=== PATIENT | female | born 1930 | race Caucasian/White ===

== ENCOUNTER 2017-02-01 17:09 | Inpatient (IN) | payer SELFPAY ==
[~2017-02-01] VITALS: Ht 144.8 cm; Wt 40.4 kg
[2017-02-01 17:44] VITALS: BP 147/112
[2017-02-01 18:34] LABS: BASOPHILS # (AUTO) 0.1 K/uL (0.00-0.22); BASOPHILS % (AUTO) 1.4 % (0.0-2.0); EOSINOPHILS # (AUTO) 0.2 K/uL (0-0.4); EOSINOPHILS % (AUTO) 2.5 % (0.0-4.0); LYMPHOCYTES % (AUTO) 35.6 % (20.5-51.1); MEAN CORPUSCULAR HEMOGLOBIN 28 pg (27-31); MEAN CORPUSCULAR HGB CONC 33 g/dL (33-37); MEAN CORPUSCULAR VOLUME 87 fL (80-94); MONOCYTES % (AUTO) 12.1 % (1.7-9.3); NEUTROPHILS # (AUTO) 4.2 K/uL (1.8-7.7); NEUTROPHILS % (AUTO) 48.4 % (42.2-75.2); PLATELET COUNT (AUTO) 171 K/uL (140-450); RED BLOOD CELL COUNT(AUTO) 4.59 MIL/uL (4.20-5.40); RED CELL DISTRIBUTION WIDTH 14.3 % (11.6-13.7); WHITE BLOOD COUNT (AUTO) 8.5 K/uL (4.8-10.8)
[2017-02-01 18:43] LABS: CALCIUM 9.3 mg/dL (8.5-10.1); CARBON DIOXIDE 29.3 mmol/L (21-32); CHLORIDE 106 mmol/L (98-107); CREATININE 0.8 mg/dL (0.6-1.3); GLUCOSE 111 mg/dL (74-106); POTASSIUM 3.3 mmol/L (3.5-5.1); SODIUM SERUM 143 mmol/L (136-145); UREA NITROGEN, BLOOD 13 mg/dL (7-18)
[2017-02-01 18:49] LABS: ALANINE AMINOTRANSFERASE 26 U/L (12-78); ALBUMIN 3.5 g/dL (3.4-5.0); ALKALINE PHOSPHATASE 79 U/L (46-116); ASPARTATE AMINOTRANSFERASE 22 U/L (15-37); LIPASE 171 U/L (73-393); TOTAL BILIRUBIN 0.7 mg/dL (0.0-1.0); TOTAL PROTEIN, SERUM 7.5 g/dL (6.4-8.2)
--- NOTE | 2017-02-01 19:41 | NUR ---
TO ER BED 4
--- NOTE | 2017-02-01 19:48 | NUR ---
PT IS 86/F BIB DAUGHTER AND GRANDSON TO ED WITH C/O EPIGASTRIC PAIN X2 MONTHS. PT FAMILY STATES NO MED HX.DENIESD; SKIN IS PINK/WARM/DRY; AAOX4 WITH EVEN AND STEADY GAIT; LUNGS CLEAR BL; HR EVEN AND REGULAR; PT DENIES ANY FEVER, CP, SOB, OR COUGH AT THIS TIME; PATIENT STATES PAIN OF 8/10 AT THIS TIME; VSS; PATIENT POSITIONED FOR COMFORT; HOB ELEVATED; BEDRAILS UP X2; BED DOWN. ER MD MADE AWARE OF PT STATUS.
[2017-02-01] MEDS ORDERED: MORPHINE SULFATE 2 MG/ML SYR IVP ONE (20:00)
[2017-02-01] MEDS ORDERED: ONDANSETRON 4 MG/2 ML VIAL IVP ONE (20:00)
[2017-02-01] MEDS ORDERED: NACL 0.9% 1,000 ML IV ONE (20:00)
[2017-02-01] MEDS ORDERED: LORazepam 2 MG/ML VIAL IVP PRN (20:35)
[2017-02-01] MEDS ORDERED: ONDANSETRON 4 MG/2 ML VIAL IVP PRN (20:35)
--- NOTE | 2017-02-01 20:37 | NUR ---
US DONE AT BEDSIDE.
[2017-02-01 20:55] LABS: INR 1.1 (0.8-1.2); PARTIAL THROMBOPLASTIN TIME 28.6 secs (22-35.6); PROTHROMBIN TIME 10.7 secs (10.8-13.4)
--- NOTE | 2017-02-01 21:00 | NUR ---
Patient will be admitted to care of DR ALEGRIA. Admited to TELE. Will go to room 108A. Belongings list completed. Report to JOSE TANG.
[2017-02-01 21:03] LABS: CREATINE KINASE MB 2.1 ng/mL (0-3.6)
[2017-02-01 21:10] VITALS: BP 138/72
--- NOTE | 2017-02-01 21:25 | NUR ---
ADMITTED A 86F FROM ER. CAME BY JEROMY ACCOMPANIED BY FAMILY MEMBERS. ON TELE MONITOR. CAME DUE TO SEVERE EPIGASTRIC ABDOMINAL PAIN TODAY. AZERI SPEAKING. BUT GRANDSON MOHAMUD PRESENT TO TRANSLATE TO PT AND DAUGHTER . ABLE TO GET MEDICAL INFORMATION TO THE PT. AWAKE, ALERT AND ORIENTED X4. AMBULATORY WITH SOME ASSISTANCE. HAS HL ON THE LT AC @22. CLEAR AND PATENT. SKIN ASSESSMENT DONE,INTACT WITH JOSE ASCENCIO CHARGE . PLAN OF CARE DISCUSSED WITH FAMILY AND CLIENT . ORIENTED TO HOSPITAL ROUTINES, VISITING HOURS AND SAFETY MEASURES. VERBALIZED UNDERSTANDING. CALL LIGHT WITHIN EASY REACH. WILL CONTINUE TO MONITOR.
--- NOTE | 2017-02-01 21:50 | NUR ---
ABLE TO TALKED TO DR. LÓPEZ, MANAGER JAVA FOR DR. ALEGRIA REGARDING HIDA SCAN ORDER. SHE SAID IT CAN BE DONE TOMORROW. ALSO MADE AWARE ABOUT K LEVEL 3.3 SHE SAID SHE WILL TAKE CARE .
[2017-02-01] MEDS ORDERED: KCL 20 MEQ/WATER INJ PREMIX 100 ML IV ONE (22:25)
[2017-02-01] MEDS: NACL 0.9% 1,000 ML IV SCH (22:30)
--- NOTE | 2017-02-01 22:30 | NUR ---
PT KEPT NPO ORDERED FOR POSSIBLE SURGERY PATTI.
--- NOTE | 2017-02-01 22:40 | NUR ---
SURGERY EXPLAINED TO FAMILY . JACK GRANDSON EXPLAINED TO PT AND VERBALIZED UNDERSTANDING. CONSENT WAS SIGNED BY PT.
[2017-02-02 00:03] VITALS: BP 121/62
--- NOTE | 2017-02-02 02:00 | NUR ---
SLEEPING WELL AT THUS TIME. NO S/S OF ANY DISCOMFORT NOTED.
[2017-02-02] MEDS: MORPHINE SULFATE 2 MG/ML SYR IVP PRN ×3 (02:35→21:43)
[2017-02-02 02:58] LABS: CREATINE KINASE MB 1.3 ng/mL (0-3.6)
[2017-02-02 04:21] VITALS: BP 100/55
--- NOTE | 2017-02-02 04:35 | NUR ---
ASSISTED UP TO THE BATHROOM. VOIDED. NO C/O PAIN AT THIS TIME.
[2017-02-02 06:08] LABS: BASOPHILS # (AUTO) 0.1 K/uL (0.00-0.22); BASOPHILS % (AUTO) 1.7 % (0.0-2.0); EOSINOPHILS # (AUTO) 0.2 K/uL (0-0.4); EOSINOPHILS % (AUTO) 2.6 % (0.0-4.0); HEMOGLOBIN 12.1 g/dL (12.0-16.0); LYMPHOCYTES # (AUTO) 1.7 K/uL (2.5-16.5); LYMPHOCYTES % (AUTO) 27.8 % (20.5-51.1); MEAN CORPUSCULAR HEMOGLOBIN 29 pg (27-31); MEAN CORPUSCULAR HGB CONC 33 g/dL (33-37); MEAN CORPUSCULAR VOLUME 88 fL (80-94); MONOCYTES # (AUTO) 0.7 K/uL (0.8-1.0); MONOCYTES % (AUTO) 10.6 % (1.7-9.3); NEUTROPHILS # (AUTO) 3.5 K/uL (1.8-7.7); NEUTROPHILS % (AUTO) 57.3 % (42.2-75.2); PLATELET COUNT (AUTO) 149 K/uL (140-450); RED BLOOD CELL COUNT(AUTO) 4.22 MIL/uL (4.20-5.40); RED CELL DISTRIBUTION WIDTH 14.2 % (11.6-13.7); WHITE BLOOD COUNT (AUTO) 6.2 K/uL (4.8-10.8)
--- NOTE | 2017-02-02 07:25 | NUR ---
RECEIVED PT IN BED, AWAKE, ALERT, ORIENTEDX4. NO SOB NOTED. DENIES ANY PAIN OR DISCOMFORT AT THIS TIME. SKIN INTACT. POSITIVE BOWEL SOUNDS NOTED ON FOUR QUADRANTS. DENIES ANY DISCOMFORT WITH BOWEL AND BLADDER ELIMINATION. SAFETY PRECAUTION IN PLACE. CALL LIGHT WITHIN REACH.
--- NOTE | 2017-02-02 07:28 | NUR ---
CALLED CT SCAN AND TALKED TO JESSICA FULTON SCAN ORDER FOR THIS AM.
--- NOTE | 2017-02-02 07:30 | NUR ---
ENDORSED PT IN STABLE CONDITION TO AM NURSE.
--- NOTE | 2017-02-02 07:54 | NUR ---
PATIENT HAS BEEN SCREENED AND CATEGORIZED MODERATE NUTRITION RISK. PATIENT WILL BE SEEN WITHIN 3-5 DAYS OF ADMISSION. 02/04/17-02/06/[address]
[2017-02-02 08:00] VITALS: BP_SYST 100; BP_SYST 142; BP_DIAS 56; BP_DIAS 75
[2017-02-02] MEDS: NACL 0.9% 1,000 ML IV SCH ×2 (09:03→21:07)
[2017-02-02] MEDS ORDERED: LIDOCAINE VISCOUS 2% 20 ML UDC PO SCH (09:30)
[2017-02-02] MEDS ORDERED: ALUMINUM HYD/MAG/SIMETHICONE 30 ML UDC PO SCH (09:30)
[2017-02-02] MEDS ORDERED: DICYCLOMINE HCL LIQUID 10 MG/5 ML UDC PO SCH (09:30)
--- NOTE | 2017-02-02 09:45 | NUR ---
CALLED NUCLEAR MEDICINE SPOKE WITH SHAWN, SHE SAID TO HOLD THE GI COCKTAIL UNTIL HIDASCAN IS DONE. SINCE PT IS NPO BEFORE PROCEDURE.
[2017-02-02 10:41] LABS: CREATINE KINASE MB 1.1 ng/mL (0-3.6)
--- NOTE | 2017-02-02 10:42 | NUR ---
SHAWN FROM NUCLEAR MEDICINE CAME TO TENTMAKER PT FOR HIDASCAN. FAMILY AT BEDSIDE AND AWARE OF PROCEDURE. PT ON STABLE CONDITION.
[2017-02-02 12:00] VITALS: BP 142/75
--- NOTE | 2017-02-02 12:15 | NUR ---
PT CAME BACK FROM NUCLEAR MEDICINE WITH SHAWN. ADMINISTERED MORPHINE 2MG FOR THE NEXT HIDASCAN SCHEDULE. PT DENIES PAIN OR DISCOMFORT. NO SOB. ASSISTED TO THE BATHROOM VOIDED YELLO CLEAR URINE. TRANSFERRED BACK WITH SHAWN (NUCLEAR MEDICINE STAFF) FOR THE HIDASCAN ON STABLE CONDITION.
--- NOTE | 2017-02-02 12:45 | NUR ---
PT CAMKE BACK FROM NUCLEAR MEDICINE WITH SHAWN ON STABLE CONDITION.
--- NOTE | 2017-02-02 13:45 | NUR ---
GI COCKTAIL HELD DUE TO PT DENIES ANY PAIN. DR. PEÑA AWARE.
[2017-02-02] MEDS ORDERED: PANT40EC PO (14:24)
[2017-02-02] MEDS ORDERED: SUCR1TAB35 PO (14:24)
[2017-02-02] MEDS ORDERED: HYDR-4446 PO (14:30)
[2017-02-02] MEDS ORDERED: POTASSIUM CHLORIDE 10 MEQ TABER PO SCH (15:00)
[2017-02-02] MEDS: LEVOFLOXACIN 250 MG/D5 PREMIX 50 ML IV SCH (15:18)
[2017-02-02 16:00] VITALS: BP 132/68
--- NOTE | 2017-02-02 17:54 | NUR ---
DR. WREN (SURGEON) CAME TO SEE PT. EXPLAINED PT CONDITION. EXPLAINED TO PT AND FAMILY FOR LAPARASCOPIC POSSIBLE OPEN CHOLESTECTOMY. DAUGHTER MARTIR SIGNED CONSENT. VERBALIZED UNDERSTANDING.
--- NOTE | 2017-02-02 19:22 | NUR ---
ENDORSED PT TO UPCOMING SHIFT ON STABLE CONDITION.
--- NOTE | 2017-02-02 19:23 | NUR ---
RECEIVED REPORT FROM DAY RN FOR CONTINUITY OF CARE. PATIENT IS A&OX4, DISCUSSED PLAN OF CARE WITH PATIENT AND FAMILY MEMBERS AT BEDSIDE, VERBALIZED UNDERSTANDING. SHIFT ASSESSMENT DONE, VS TAKEN, STABLE. NO S/S OF RESPIRATORY DISTRESS NOTED ON ROOM AIR. PATIENT DENIES PAIN AT THIS TIME. IV TO LT AC 22 GAUGE PATENT AND INFUSING FLUIDS WELL. SAFETY/ FALL PRECAUTIONS ENFORCED. PT INFORMED OF NPO AT MIDNIGHT, VERBALIZED UNDERSTANDING. CALL LIGHT PLACED WITHIN REACH. WILL CONTINUE TO MONITOR.
[2017-02-02 20:00] VITALS: BP 143/71
[2017-02-02] MEDS ORDERED: ALBUTEROL SULFATE/IPRATROPIU 3 ML SOL IH PRN (20:50)
[2017-02-02] MEDS: metroNIDAZOLE 500 MG/NS PREMIX 100 ML IV SCH (21:07)
--- NOTE | 2017-02-02 21:43 | NUR ---
PT C/O PAIN IN STOMACH, MEDICATED PER MD ORDER. DUE ANTIBIOTICS ADMINISTERED, NO REACTION NOTED. CALL LIGHT WITHIN REACH.
[2017-02-02] MEDS ORDERED: PNEUMOCOCCAL VACCINE 23 MCG/0.5 ML VIAL IMVAC PRN (23:15)
--- NOTE | 2017-02-02 23:52 | NUR ---
PT AMBULATED TO RESTROOM WITH ASSISTANCE, VOIDED. RETURNED TO BED, VS TAKEN, STABLE. PT C/O IV SITE SORE, NEW IV LINE INSERTED TO LT FA 22 GAUGE. CALL LIGHT PLACED WITHIN REACH.
[2017-02-03] VITALS: BP 125/67
--- NOTE | 2017-02-03 01:49 | NUR ---
PATIENT IS SLEEPING. NO S/S OF DISTRESS OR DISCOMFORT NOTED. WILL CONTINUE TO MONITOR.
[2017-02-03] MEDS: MORPHINE SULFATE 2 MG/ML SYR IVP PRN ×2 (03:39→13:16)
--- NOTE | 2017-02-03 03:39 | NUR ---
VS TAKEN, STABLE. PT C/O ABDOMINAL PAIN, MEDICATED PER MD ORDER. CALL LIGHT WITHIN REACH.
[2017-02-03 04:00] VITALS: BP 144/61
[2017-02-03] MEDS: metroNIDAZOLE 500 MG/NS PREMIX 100 ML IV SCH ×3 (04:35→20:12)
--- NOTE | 2017-02-03 05:53 | NUR ---
ASSISTED PATIENT TO USE RESTROOM, VOIDED. PATIENT NOW BACK IN BED AND MADE COMFORTABLE. CALL LIGHT WITHIN REACH.
[2017-02-03 06:04] LABS: BASOPHILS # (AUTO) 0.1 K/uL (0.00-0.22); BASOPHILS % (AUTO) 1.8 % (0.0-2.0); EOSINOPHILS # (AUTO) 0.1 K/uL (0-0.4); EOSINOPHILS % (AUTO) 1.7 % (0.0-4.0); HEMATOCRIT 37.1 % (36-48); HEMOGLOBIN 12.1 g/dL (12.0-16.0); LYMPHOCYTES % (AUTO) 29.9 % (20.5-51.1); MEAN CORPUSCULAR HEMOGLOBIN 29 pg (27-31); MEAN CORPUSCULAR HGB CONC 33 g/dL (33-37); MEAN CORPUSCULAR VOLUME 87 fL (80-94); MONOCYTES # (AUTO) 0.7 K/uL (0.8-1.0); MONOCYTES % (AUTO) 10.9 % (1.7-9.3); NEUTROPHILS # (AUTO) 3.7 K/uL (1.8-7.7); NEUTROPHILS % (AUTO) 55.7 % (42.2-75.2); PLATELET COUNT (AUTO) 144 K/uL (140-450); RED BLOOD CELL COUNT(AUTO) 4.24 MIL/uL (4.20-5.40); RED CELL DISTRIBUTION WIDTH 13.9 % (11.6-13.7); WHITE BLOOD COUNT (AUTO) 6.6 K/uL (4.8-10.8)
[2017-02-03 06:24] LABS: ANION GAP 11.8 (8-16); CALCIUM 8.2 mg/dL (8.5-10.1); CARBON DIOXIDE 25.8 mmol/L (21-32); CHLORIDE 108 mmol/L (98-107); CREATININE 0.6 mg/dL (0.6-1.3); GLUCOSE 85 mg/dL (74-106); POTASSIUM 3.6 mmol/L (3.5-5.1); SODIUM SERUM 142 mmol/L (136-145); UREA NITROGEN, BLOOD 10 mg/dL (7-18)
[2017-02-03 06:32] LABS: MAGNESIUM 1.8 mg/dL (1.8-2.4)
--- NOTE | 2017-02-03 07:15 | NUR ---
ENDORSED PATIENT TO DAY RN FOR CONTINUITY OF CARE, PATIENT IS IN STABLE CONDITION.
--- NOTE | 2017-02-03 07:20 | NUR ---
RECEIVED REPORT FROM JOSE CHRISTIANSON. PT IS RESTING IN BED, A/OX4, SKIN IS INTACT, IV ON THE LEFT FA, PATENT, INTACT, INFUSING WELL, NO S/S OF RESPIRATORY DISTRESS OR DISCOMFORT NOTED, SAFETY/FALL PRECAUTIONS IN PLACE, DISCUSSED PLAN OF CARE WITH PT, PT VERBALIZED UNDERSTANDING, CALL LIGHT IS WITHIN REACH, WILL CONTINUE TO MONITOR.
[2017-02-03 08:00] VITALS: BP 134/69
--- NOTE | 2017-02-03 08:15 | NUR ---
PT OFF UNIT TO OR FOR LAP CHOLEY WITH CHOLANGIO PROCEDURE.
[2017-02-03] MEDS ORDERED: MIDAZOLAM 2 MG/2 ML VIAL ONE (08:29)
[2017-02-03] MEDS ORDERED: fentaNYL 0.05 MG/ML VIAL ONE (08:30)
[2017-02-03] MEDS ORDERED: MEPERIDINE 50 MG/ML SYR ONE (08:31)
[2017-02-03] MEDS ORDERED: BUPIVACAINE-MPF/EPI 0.25% 30 ML VIAL INJ ONE (08:42)
[2017-02-03] MEDS ORDERED: LACTATED RINGERS 1,000 ML IV SCH (09:14)
[2017-02-03] MEDS ORDERED: HYDROmorphone 1 MG/ML AMP IVP PRN (09:15)
[2017-02-03] MEDS ORDERED: diphenhydrAMINE 50 MG/ML VIAL IVP PRN (09:15)
[2017-02-03] MEDS ORDERED: MEPERIDINE 25 MG/ML SYR IVP PRN (09:15)
[2017-02-03] MEDS ORDERED: ONDANSETRON 4 MG/2 ML VIAL IVP PRN (09:15)
[2017-02-03] MEDS ORDERED: HYDROcodone/APAP 5/325 MG 1 TAB TAB PO PRN (10:25)
[2017-02-03] MEDS: DEXT 5% / NACL 0.45% 1,000 ML IV SCH (10:25)
[2017-02-03] MEDS ORDERED: HYDROmorphone PFS 2 MG/ML SYR ONE (10:48)
--- NOTE | 2017-02-03 11:20 | NUR ---
PT RETURNED TO UNIT FROM OR, VS TAKEN, PT HAS 3 ABDOMINAL INCISIONS, NO S/S OF RESPIRATORY DISTRESS OR DISCOMFORT NOTED, PT ON O2 2L, SIMPLE MASK, SAFETY/FALL PRECAUTIONS IN PLACE, FAMILY IS AT BEDSIDE, CALL LIGHT IS WITHIN REACH, WILL CONTINUE TO MONITOR.
[2017-02-03 11:23] LABS: ALBUMIN 3.1 g/dL (3.4-5.0); BILIRUBIN,DIRECT 0.4 mg/dL (0.0-0.3); TOTAL BILIRUBIN 1.3 mg/dL (0.0-1.0); TOTAL PROTEIN, SERUM 6.7 g/dL (6.4-8.2)
[2017-02-03 12:00] VITALS: BP 117/60
--- NOTE | 2017-02-03 13:00 | NUR ---
PT SITTING IN BED EATING LUNCH, PATIENT'S FAMILY IS AT BEDSIDE, NO S/S OF RESPIRATORY DISTRESS OR DISCOMFORT NOTED, CALL LIGHT IS WITHIN REACH, WILL CONTINUE TO MONITOR.
--- NOTE | 2017-02-03 13:55 | NUR ---
PT WEAK AFTER PROCEDURE UNABLE TO DO I.S AT THIS TIME
--- NOTE | 2017-02-03 15:20 | NUR ---
PT IS RESTING IN BED, FAMILY IS AT BEDSIDE, CALL LIGHT WITHIN REACH.
[2017-02-03 16:00] VITALS: BP 110/56
[2017-02-03] MEDS: LEVOFLOXACIN 250 MG/D5 PREMIX 50 ML IV SCH (16:52)
--- NOTE | 2017-02-03 17:00 | NUR ---
PT SLEEPING AT THIS TIME, PATIENT'S DAUGHTER IS AT HER BEDSIDE, CALL LIGHT WITHIN REACH, WILL CONTINUE TO MONITOR.
--- NOTE | 2017-02-03 18:10 | NUR ---
ASSISTED PT WITH AMBULATION TO THE RESTROOM, PT TOLERATED WELL, ASSISTED PT BACK INTO BED, NO S/S OF RESPIRATORY DISTRESS OR DISCOMFORT NOTED, CALL LIGHT WITHIN REACH, WILL CONTINUE TO MONITOR.
--- NOTE | 2017-02-03 19:15 | NUR ---
ENDORSED PT TO JOSE PIZARRO. FOR CONTINUITY OF CARE, PT STABLE AT THIS TIME.
--- NOTE | 2017-02-03 19:30 | NUR ---
RECEIVED REPORT FROM OH GARCIA AT BEDSIDE. PT IS ALERT AWAKE ORIENTED X4. KOSOVAN-SPEAKING ONLY BUT FAMILY AT BEDSIDE. INITIAL ASSESSMENT DONE. NO S/S OF RESPIRATORY DISTRESS OR SOB NOTED. S/P LAP BENJA THIS MORNING. NO C/O PAIN OR ANY DISCOMFORT AT THIS TIME. PLAN OF CARE REVIEWED TO PT AND FAMILY AT BEDSIDE AND VERBALIZED UNDERSTANDING. CALL LIGHT WITHIN REACH. WILL CONTINUE TO MONITOR.
[2017-02-03 20:00] VITALS: BP 107/59
[2017-02-04] VITALS: BP 110/63
--- NOTE | 2017-02-04 00:20 | NUR ---
PT IS SLEEPING RIGHT NOW BUT EASILY AROUSABLE. NO S/S OF ANY DISCOMFORT AT THIS TIME. ALL NEEDS ARE ATTENDED. CALL LIGHT WITHIN REACH. WILL CONTINUE TO MONITOR.
[2017-02-04] MEDS: DEXT 5% / NACL 0.45% 1,000 ML IV SCH (00:43)
[2017-02-04] MEDS: MORPHINE SULFATE 2 MG/ML SYR IVP PRN ×3 (02:50→20:38)
[2017-02-04 04:00] VITALS: BP 116/61
[2017-02-04] MEDS: metroNIDAZOLE 500 MG/NS PREMIX 100 ML IV SCH ×2 (04:46→13:19)
--- NOTE | 2017-02-04 05:00 | NUR ---
AM CARE RENDERED. BED LINEN CHANGED. INSTRUCTED PT TO REPOSITION. KEPT CLEAN AND DRY. CALL LIGHT WITHIN REACH. WILL CONTINUE TO MONITOR.
[2017-02-04 06:32] LABS: BASOPHILS # (AUTO) 0.1 K/uL (0.00-0.22); BASOPHILS % (AUTO) 0.9 % (0.0-2.0); EOSINOPHILS # (AUTO) 0.1 K/uL (0-0.4); EOSINOPHILS % (AUTO) 0.7 % (0.0-4.0); HEMATOCRIT 37.8 % (36-48); HEMOGLOBIN 12.4 g/dL (12.0-16.0); LYMPHOCYTES # (AUTO) 1.5 K/uL (2.5-16.5); LYMPHOCYTES % (AUTO) 13.7 % (20.5-51.1); MEAN CORPUSCULAR HEMOGLOBIN 29 pg (27-31); MEAN CORPUSCULAR HGB CONC 33 g/dL (33-37); MEAN CORPUSCULAR VOLUME 87 fL (80-94); MONOCYTES # (AUTO) 1.4 K/uL (0.8-1.0); MONOCYTES % (AUTO) 12.4 % (1.7-9.3); NEUTROPHILS # (AUTO) 7.9 K/uL (1.8-7.7); NEUTROPHILS % (AUTO) 72.3 % (42.2-75.2); PLATELET COUNT (AUTO) 162 K/uL (140-450); RED BLOOD CELL COUNT(AUTO) 4.33 MIL/uL (4.20-5.40); RED CELL DISTRIBUTION WIDTH 14.1 % (11.6-13.7)
[2017-02-04 06:56] LABS: ALANINE AMINOTRANSFERASE 36 U/L (12-78); ALBUMIN 2.5 g/dL (3.4-5.0); ALKALINE PHOSPHATASE 112 U/L (46-116); ANION GAP 7.5 (8-16); ASPARTATE AMINOTRANSFERASE 40 U/L (15-37); CALCIUM 8.2 mg/dL (8.5-10.1); CARBON DIOXIDE 29.2 mmol/L (21-32); CHLORIDE 106 mmol/L (98-107); CREATININE 0.7 mg/dL (0.6-1.3); GLUCOSE 133 mg/dL (74-106); POTASSIUM 3.7 mmol/L (3.5-5.1); SODIUM SERUM 139 mmol/L (136-145); TOTAL BILIRUBIN 0.9 mg/dL (0.0-1.0); TOTAL PROTEIN, SERUM 5.8 g/dL (6.4-8.2); UREA NITROGEN, BLOOD 11 mg/dL (7-18)
[2017-02-04 07:02] LABS: MAGNESIUM 1.7 mg/dL (1.8-2.4)
--- NOTE | 2017-02-04 07:19 | NUR ---
PT HAS NO S/S OF ANY DISCOMFORT. PLAN OF CARE ENDORSE TO AM SHIFT NURSE FOR CONTINUITY OF CARE.
--- NOTE | 2017-02-04 07:24 | NUR ---
RECEIVED REPORT FROM JOSE PIZARRO. PT IS RESTING IN BED, A/OX4, AMBULATES WITH ASSIST, IV ON THE LEFT AC, PATENT, INTACT, INFUSING WELL, PT IS S/P LAP. BENJA. 02/03/17, HAS 3 SMALL SURGICAL INCISIONS, INITIAL ASSESSMENT DONE, NO S/S OF RESPIRATORY DISTRESS OR DISCOMFORT NOTED, SAFETY/FALL PRECAUTIONS IN PLACE, DISCUSSED PLAN OF CARE WITH PT, PT VERBALIZED UNDERSTANDING, DAUGHTER IS AT BEDSIDE, CALL LIGHT WITHIN REACH, WILL CONTINUE TO MONITOR.
[2017-02-04 08:00] VITALS: BP 127/67
--- NOTE | 2017-02-04 09:45 | NUR ---
PT IS RESTING IN BED, FAMILY IS AT BEDSIDE, CALL LIGHT IS WITHIN REACH, WILL CONTINUE TO MONITOR.
--- NOTE | 2017-02-04 11:14 | NUR ---
PT COMPLAINED OF A 7/10 ABDOMINAL PAIN, WILL MEDICATE WITH PRN PAIN MEDICATION AT THIS TIME.
--- NOTE | 2017-02-04 11:30 | NUR ---
PT IS SITTING ON CHAIR AT BEDSIDE, DAUGHTER IS ALSO AT BEDSIDE, CALL LIGHT WITHIN REACH.
[2017-02-04 12:00] VITALS: BP 147/71
--- NOTE | 2017-02-04 13:45 | NUR ---
PT IS RESTING IN BED WATCHING TV, FAMILY IS AT BEDSIDE.
[2017-02-04] MEDS ORDERED: NACL 0.9% 500 ML IV SCH (14:40)
--- NOTE | 2017-02-04 15:30 | NUR ---
PT AMBULATING DOWN THE CARCAMO WITH HER DAUGHTERS ASSISTANCE
[2017-02-04 16:00] VITALS: BP 139/74
--- NOTE | 2017-02-04 17:36 | NUR ---
PT RESTING IN BED WATCHING TV, FAMILY IS AT BEDSIDE, CALL LIGHT WITHIN REACH.
--- NOTE | 2017-02-04 19:10 | NUR ---
ENDORSED PT TO JOSE PIZARRO. FOR CONTINUITY OF CARE, PT STABLE AT THIS TIME.
--- NOTE | 2017-02-04 19:30 | NUR ---
RECEIVED REPORT FROM OH GARCIA AT BEDSIDE. PT IS ALERT AWAKE ORIENTED X4. SCOTTISH-SPEAKING ONLY BUT FAMILY AT BEDSIDE. INITIAL ASSESSMENT DONE. NO S/S OF RESPIRATORY DISTRESS OR SOB NOTED. S/P LAP BENJA YESTERDAY. NO C/O PAIN OR ANY DISCOMFORT AT THIS TIME. PLAN OF CARE REVIEWED TO PT AND FAMILY AT BEDSIDE AND VERBALIZED UNDERSTANDING. CALL LIGHT WITHIN REACH. WILL CONTINUE TO MONITOR.
[2017-02-04] MEDS: MAGNESIUM OXIDE 400 MG TAB PO SCH (20:37)
[2017-02-05] VITALS: BP 135/68
--- NOTE | 2017-02-05 05:00 | NUR ---
AM CARE RENDERED. BED LINEN CHANGED. INSTRUCTED PT TO REPOSITION. KEPT CLEAN AND DRY. CALL LIGHT WITHIN REACH. WILL CONTINUE TO MONITOR.
[2017-02-05 05:59] LABS: BASOPHILS # (AUTO) 0.2 K/uL (0.00-0.22); BASOPHILS % (AUTO) 2.4 % (0.0-2.0); EOSINOPHILS # (AUTO) 0.1 K/uL (0-0.4); HEMATOCRIT 39.7 % (36-48); HEMOGLOBIN 12.6 g/dL (12.0-16.0); LYMPHOCYTES # (AUTO) 2.3 K/uL (2.5-16.5); LYMPHOCYTES % (AUTO) 26.1 % (20.5-51.1); MEAN CORPUSCULAR HEMOGLOBIN 28 pg (27-31); MEAN CORPUSCULAR HGB CONC 32 g/dL (33-37); MEAN CORPUSCULAR VOLUME 88 fL (80-94); MONOCYTES # (AUTO) 0.9 K/uL (0.8-1.0); MONOCYTES % (AUTO) 10.9 % (1.7-9.3); NEUTROPHILS # (AUTO) 5.1 K/uL (1.8-7.7); NEUTROPHILS % (AUTO) 59.6 % (42.2-75.2); PLATELET COUNT (AUTO) 147 K/uL (140-450); WHITE BLOOD COUNT (AUTO) 8.7 K/uL (4.8-10.8)
[2017-02-05 06:17] LABS: ANION GAP 9.6 (8-16); CALCIUM 8.3 mg/dL (8.5-10.1); CARBON DIOXIDE 28.6 mmol/L (21-32); CHLORIDE 108 mmol/L (98-107); CREATININE 0.6 mg/dL (0.6-1.3); GLUCOSE 102 mg/dL (74-106); POTASSIUM 3.2 mmol/L (3.5-5.1); SODIUM SERUM 143 mmol/L (136-145); UREA NITROGEN, BLOOD 9 mg/dL (7-18)
[2017-02-05 06:41] LABS: MAGNESIUM 1.7 mg/dL (1.8-2.4); PHOSPHORUS 2.2 mg/dL (2.5-4.9)
--- NOTE | 2017-02-05 07:13 | NUR ---
PT HAS NO S/S OF ANY DISCOMFORT. PLAN OF CARE ENDORSE TO AM SHIFT NURSE FOR CONTINUITY OF CARE.
[2017-02-05 07:30] VITALS: BP 128/69
[2017-02-05] MEDS ORDERED: MAGNESIUM HYDROXIDE 2400 MG/30 ML UDC PO SCH (09:00)
[2017-02-05] MEDS: MAGNESIUM OXIDE 400 MG TAB PO SCH (09:09)
[2017-02-05] MEDS: SIMETHICONE 80 MG TAB.CHEW PO SCH ×2 (09:09→12:57)
--- NOTE | 2017-02-05 09:09 | NUR ---
DUE MEDICATIONS GIVEN, PT TOLERATED WELL, NO S/S OF RESPIRATORY DISTRESS OR DISCOMFORT NOTED, DAUGHTER IS AT PT BEDSIDE, CALL LIGHT WITHIN REACH, WILL CONTINUE TO MONITOR.
[2017-02-05] MEDS ORDERED: DOCU-67 PO (10:05)
[2017-02-05] MEDS ORDERED: SIME80CT70 PO (10:05)
--- NOTE | 2017-02-05 12:00 | NUR ---
PT IS AMBULATING DOWN THE CARCAMO WITH HER SON AND GRANDSON, PT TOLERATING WELL.
--- NOTE | 2017-02-05 12:45 | NUR ---
PT IS RESTING SITTING IN BED, FAMILY IS AT BEDSIDE.
--- NOTE | 2017-02-05 14:19 | NUR ---
PT SLEEPING IN BED, SON IS AT BEDSIDE.
--- NOTE | 2017-02-05 15:00 | NUR ---
PT DISCHARGE INSTRUCTIONS GIVEN, PRESCRIPTION GIVEN, ID WRIST BAND GIVEN, IV REMOVED CATHETER TIP INTACT. PT STABLE UPON DISCHARGE
== END 2017-02-05 15:00 | disposition home or self-care (01) | DRG 417 ==
LOC: MED 17:09 → MTU 20:51
PROVIDERS: ADMIT Family Medicine; ATTEND Family Medicine
PROC: 0FT44ZZ Resection of Gallbladder, Percutaneous Endoscopic Approach (ICD-10-PCS; principal; 2017-02-03 08:30)
DX: K80.00 Calculus of gallbladder with acute cholecystitis without obstruction (principal); E43 Unspecified severe protein-calorie malnutrition; Z68.1 Body mass index [BMI] 19.9 or less, adult; K43.9 Ventral hernia without obstruction or gangrene; E87.6 Hypokalemia; J44.9 Chronic obstructive pulmonary disease, unspecified; Z87.11 Personal history of peptic ulcer disease; Z28.21 Immunization not carried out because of patient refusal
CPT/HCPCS: 36415; 71010; 76705; 78445; 80048; 80053; 80076; 82248; 82550; 82553; 83690; 83735; 84100; 84484; 85025; 85610; 85730; 86886; 86900; 86901; 87081; 93005; 94640; 96361; 96374; 96375; 99285; A9510; J1170; J1956; J2175; J2250; J2270; J2405; J3010; J3480; J3490; J7030; J7620; Q0092

== ENCOUNTER 2017-02-13 17:19 | Emergency (ER) | payer SELFPAY ==
[~2017-02-13] VITALS: Ht 147.3 cm; Wt 43.1 kg
[~2017-02-13 17:19] MED LIST: CARAFATE1 GM PO; COLACE100 M1 PO; MYLICON80 MG PO; NORCO 5/325 MG1 TAB PO; PROTONIX40 MG PO
[2017-02-13 17:36] VITALS: BP 125/59
--- NOTE | 2017-02-13 18:06 | NUR ---
Pt to overflow.
--- NOTE | 2017-02-13 18:10 | NUR ---
SEEN BY ERMD IN OF
[2017-02-13 18:20] VITALS: BP 137/71
--- NOTE | 2017-02-13 18:20 | NUR ---
PATIENT OUT OF PAIN MEDS. NORCO. S/P LAP.BENJA. X1WK. AGO.SON WITH PATIENT
--- NOTE | 2017-02-13 18:20 | NUR ---
Chart checked and completed. The patient's care was reviewed and supervised by Nayeli Doshi RN.
[2017-03-24] MEDS ORDERED: COLACE100 MG PO (12:20)
[2017-03-24] MEDS ORDERED: NORCO 325 MG-51 TAB PO (12:20)
[2017-04-10] MEDS ORDERED: COLACE100 M1 PO (10:25)
== END 2017-02-13 18:20 | disposition home or self-care (01) ==
LOC: MED 17:19
DX: R10.84 Generalized abdominal pain (principal); R03.0 Elevated blood-pressure reading, without diagnosis of hypertension; Z90.49 Acquired absence of other specified parts of digestive tract

== ENCOUNTER 2017-03-10 18:40 | Emergency (ER) | payer MEDICAID ==
[~2017-03-10] VITALS: Ht 147.3 cm; Wt 41.8 kg
[2017-03-10 18:51] VITALS: BP 145/80
--- NOTE | 2017-03-10 18:58 | NUR ---
Patient to bed 03.
--- NOTE | 2017-03-10 19:11 | NUR ---
Dr. Clarke evaluating patient at bedside.
[2017-03-10] MEDS ORDERED: NACL 0.9% 1,000 ML IV ONE (19:13)
--- NOTE | 2017-03-10 19:20 | NUR ---
PATIENT PRESENTS TO ED WITH C/O ABDOMINAL SHARP PAIN X 15 DAYS RADIATING TO THE BACK AND UP CHEST- ALSO DYSURIA SEVERE NAUSEA, NO APPETITE, DENIES LOOSE/WATERY STOOLS HX---ARTHRITIS RX----NONE RECENT CHOLECYSTECTOMY 01/2017 IN [facility]; DENIES V/D; SKIN IS PINK/WARM/DRY; AAOX4 WITH EVEN AND STEADY GAIT; LUNGS CLEAR BL; HR EVEN AND REGULAR; PT DENIES ANY FEVER, CP, SOB, OR COUGH AT THIS TIME; PATIENT STATES PAIN OF 8/10 AT THIS TIME; VSS; PATIENT POSITIONED FOR COMFORT; HOB ELEVATED; BEDRAILS UP X2; BED DOWN. ER MD MADE AWARE OF PT STATUS.
--- NOTE | 2017-03-10 19:30 | NUR ---
PT CAME TO ER WITH C/O ABDOMINAL SHARP PAIN X 15 DAYS RADIATING TO THE BACK AND UP CHEST. ALSO DYSURIA, SEVERE NAUSEA, NO APPETITE, DENIES LOOSE/WATERY STOOLS HX OF ARTHRITIS, & RECENT CHOLECYSTECTOMY 01/2017 IN [facility].
--- NOTE | 2017-03-10 19:33 | NUR ---
REPORT GIVEN TO JOSE PIZARRO
--- NOTE | 2017-03-10 19:56 | NUR ---
PT TAKEN TO CT
--- NOTE | 2017-03-10 20:08 | NUR ---
PT RETURN FROM CT
[2017-03-10] MEDS ORDERED: LEVOFLOXACIN 500 MG TAB PO ONE (21:50)
[2017-03-10 22:45] VITALS: BP 131/73
--- NOTE | 2017-03-10 22:45 | NUR ---
Patient discharged with v/s stable. Written and verbal after care instructions given and explained. Patient alert, oriented and verbalized understanding of instructions. Ambulatory with steady gait. All questions addressed prior to discharge. ID band removed. Patient advised to follow up with PMD. Rx of LEVAQUIN 500MG PO given. Patient educated on indication of medication including possible reaction and side effects. Opportunity to ask questions provided and answered.
[2017-03-24] MEDS ORDERED: COLACE100 MG PO (12:20)
[2017-03-24] MEDS ORDERED: NORCO 325 MG-51 TAB PO (12:20)
[2017-04-10] MEDS ORDERED: COLACE100 M1 PO (10:25)
== END 2017-03-10 22:45 | disposition home or self-care (01) ==
LOC: MED 18:40
DX: J18.9 Pneumonia, unspecified organism (principal); R33.9 Retention of urine, unspecified; R03.0 Elevated blood-pressure reading, without diagnosis of hypertension; M19.90 Unspecified osteoarthritis, unspecified site; Z90.49 Acquired absence of other specified parts of digestive tract
CPT/HCPCS: 36415; 74176; 80053; 81001; 82150; 83690; 85025; 87086; 93005; 96360; 99285; J7030

== ENCOUNTER 2017-03-20 14:00 | Inpatient (IN) | payer MEDICAID ==
[~2017-03-20] VITALS: Ht 137.2 cm; Wt 40.8 kg
[~2017-03-20 14:00] MED LIST changes: -CARAFATE1 GM PO; -COLACE100 M1 PO; +DOCU-67 PO; +HYDR-4446 PO; -MYLICON80 MG PO; -NORCO 5/325 MG1 TAB PO; +PANT40EC PO; -PROTONIX40 MG PO; +SIME80CT70 PO
[2017-03-20 14:27] VITALS: BP 121/68
--- NOTE | 2017-03-20 15:47 | NUR ---
Patient ambulated to bed 8. RN evaluating patient at bedside.
--- NOTE | 2017-03-20 16:05 | NUR ---
PT PRESENTS TO ER W/C/O ABDOMINAL PAIN S/P LAP BENJA 2 MONTHS AGO.. PT STATES SHE FEELS LIKE HER ABDOMEN IS FULL . DENIES ANY DRAINAGE COMING OUT OF THE INCISSION SITE;LUMP NOTED ON MID ABDOMEN;DENIES N/V/D; SKIN IS PINK/WARM/DRY; AAOX4 WITH EVEN AND STEADY GAIT; LUNGS CLEAR BL; HR EVEN AND REGULAR; PT DENIES ANY FEVER, CP, SOB, OR COUGH AT THIS TIME; PATIENT STATES PAIN OF 6/10 AT THIS TIME;PATIENT POSITIONED FOR COMFORT; HOB ELEVATED; BEDRAILS UP X2; BED DOWN. ALL MONITORS IN PLACED.
[2017-03-20] MEDS ORDERED: NACL 0.9% 1,000 ML IV ONE (16:17)
[2017-03-20 17:00] LABS: BASOPHILS # (AUTO) 0.2 K/uL (0.00-0.22); BASOPHILS % (AUTO) 1.8 % (0.0-2.0); EOSINOPHILS # (AUTO) 0.1 K/uL (0-0.4); EOSINOPHILS % (AUTO) 1.7 % (0.0-4.0); HEMATOCRIT 40.6 % (36-48); HEMOGLOBIN 12.9 g/dL (12.0-16.0); LYMPHOCYTES # (AUTO) 2.3 K/uL (2.5-16.5); LYMPHOCYTES % (AUTO) 26.2 % (20.5-51.1); MEAN CORPUSCULAR HEMOGLOBIN 28 pg (27-31); MEAN CORPUSCULAR HGB CONC 32 g/dL (33-37); MEAN CORPUSCULAR VOLUME 87 fL (80-94); MONOCYTES % (AUTO) 11.8 % (1.7-9.3); NEUTROPHILS # (AUTO) 5.2 K/uL (1.8-7.7); NEUTROPHILS % (AUTO) 58.5 % (42.2-75.2); PLATELET COUNT (AUTO) 238 K/uL (140-450); RED BLOOD CELL COUNT(AUTO) 4.66 MIL/uL (4.20-5.40); RED CELL DISTRIBUTION WIDTH 15.1 % (11.6-13.7); WHITE BLOOD COUNT (AUTO) 8.8 K/uL (4.8-10.8)
[2017-03-20] MEDS ORDERED: HYDROmorphone 1 MG/ML AMP IVP ONE (17:15)
--- NOTE | 2017-03-20 17:25 | NUR ---
WENT TO CT SCAN;ACCOMPANIED BY TECH
[2017-03-20 17:30] LABS: ANION GAP 9.5 (8-16); CALCIUM 9.9 mg/dL (8.5-10.1); CARBON DIOXIDE 30.2 mmol/L (21-32); CHLORIDE 102 mmol/L (98-107); CREATININE 0.7 mg/dL (0.6-1.3); GLUCOSE 109 mg/dL (74-106); POTASSIUM 3.7 mmol/L (3.5-5.1); SODIUM SERUM 138 mmol/L (136-145); UREA NITROGEN, BLOOD 12 mg/dL (7-18)
[2017-03-20 17:31] LABS: ALANINE AMINOTRANSFERASE 16 U/L (12-78); ALBUMIN 3.3 g/dL (3.4-5.0); ALKALINE PHOSPHATASE 90 U/L (46-116); AMYLASE 46 U/L (25-115); ASPARTATE AMINOTRANSFERASE 19 U/L (15-37); LIPASE 573 U/L (73-393); TOTAL BILIRUBIN 0.6 mg/dL (0.0-1.0); TOTAL PROTEIN, SERUM 8.8 g/dL (6.4-8.2)
--- NOTE | 2017-03-20 17:36 | NUR ---
Patient returned from CT scan.
--- NOTE | 2017-03-20 18:26 | NUR ---
PT SLEEPING;ALL MONITORS IN PLACED;NO ACUTE DISTRESS NOTED;WILL CONTINUE TO MONITOR PT.
[2017-03-20] MEDS ORDERED: NACL 0.9% 500 ML IV SCH (18:27)
--- NOTE | 2017-03-20 19:15 | NUR ---
REPORT RECEIVED FROM GRACIELA GARCIA
--- NOTE | 2017-03-20 19:22 | NUR ---
Pt report given to JOSE OLSON. Transfer of care at this time.
[2017-03-20] MEDS ORDERED: PIPERACILLIN/TAZOBACTAM 3.375 GM in DEXTROSE 5% 50 ML IV ONE (19:30)
[2017-03-20 19:34] LABS: INR 1.1 (0.8-1.2); PROTHROMBIN TIME 10.1 secs (10.8-13.4)
[2017-03-20 19:37] LABS: APPEARANCE,URINE CLEAR (CLEAR); BILIRUBIN,URINE NEGATIVE (NEGATIVE); BLOOD, URINE 1+ (NEGATIVE); COLOR,URINE YELLOW (YELLOW); LEUKOCYTE ESTERASE ,URINE TRACE (NEGATIVE); NITRITE, URINE NEGATIVE (NEGATIVE); PROTEIN,URINE NEGATIVE (NEGATIVE); UGLUCOSE NEGATIVE (NEGATIVE); UROBILINOGEN,URINE 0.2 EU/dL (0.2 - 1)
[2017-03-20 19:43] LABS: BACTERIA,URINE FEW /HPF (None Seen); WBC,URINE 0-3 /HPF (0-5)
[2017-03-20] MEDS ORDERED: PIPERACILLIN/TAZOBACTAM 3.375 GM VIAL IV ONE (19:43)
[2017-03-20 19:44] LABS: LACTIC ACID 1.3 mmol/L (0.4-2.0)
--- NOTE | 2017-03-20 20:40 | NUR ---
Patient will be admitted to care of DR ALEGRIA. Admited to TELE. Will go to room 110A. Belongings list completed. Report to JOSE DIAZ
[2017-03-20 20:45] VITALS: BP 148/67
--- NOTE | 2017-03-20 20:45 | NUR ---
RECEIVED PT FROM ER VIA JEROMY PE AAOX4 AMBULATORY WILTH [employer] IV ON LEFT AC INFUSING WELL ON MIDDLE SCHOOL COUNSELOR SR ABD 3 SMALL SCAR FOR S/P LAP BENJA AND 3 CMX 3 CM MASS ON UMBILICUS AREA PERISTALSIS PRESENT, PT IS ORIENTED TO THE FLOOR CALL LIGHT WITHIN REACH RELATIVES AT BED SIDE
--- NOTE | 2017-03-20 22:00 | NUR ---
PT IS ASSISTED TO USED BSC VOIDING WELL, ON TELEMETRY SR
[2017-03-20] MEDS ORDERED: DOCUSATE SODIUM 100 MG GELCAP PO PRN (22:40)
[2017-03-20] MEDS ORDERED: SIMETHICONE 80 MG TAB.CHEW PO PRN (22:40)
[2017-03-20] MEDS ORDERED: HYDROcodone/APAP 5/325 MG 1 TAB TAB PO SCH (22:40)
[2017-03-20] MEDS ORDERED: MORPHINE SULFATE 2 MG/ML SYR IVP PRN (22:45)
[2017-03-20] MEDS ORDERED: ONDANSETRON 4 MG/2 ML VIAL IVP PRN (22:45)
[2017-03-20] MEDS ORDERED: ACETAMINOPHEN 325 MG TAB PO PRN (22:45)
[2017-03-20 23:14] LABS: CHOL/HDL RATIO 3.5 (1-4.5); FREE T4 (FREE THYROXINE) 1.33 ng/dL (0.76-1.46); THYROID STIMULATING HORMONE 0.87 uIU/mL (0.34-3.76)
[2017-03-20] MEDS: ASPIRIN 81 MG TAB.CHEW PO SCH (23:37)
[2017-03-20] MEDS: ATORVASTATIN 20 MG TAB PO SCH (23:37)
[2017-03-20] MEDS: NACL 0.9% 1,000 ML IV SCH (23:37)
[2017-03-20] MEDS: METOPROLOL 25 MG TAB PO SCH (23:38)
[2017-03-20] MEDS: HYDROcodone/APAP 5/325 MG 1 TAB TAB PO PRN (23:39)
[2017-03-20] MEDS: LISINOPRIL 5 MG TAB PO SCH (23:40)
[2017-03-21] VITALS: BP 114/63
[2017-03-21] MEDS: PIPER/TAZO 2.25GM/D5W PREMIX 50 ML IV SCH ×4 (00:17→17:26)
--- NOTE | 2017-03-21 00:30 | NUR ---
AFTER PAIN MEDIC GIVEN PT SLEEPING WELL, NOT DISTRESS NOTED ON TELEMETRY SR
[2017-03-21 04:00] VITALS: BP 107/54
--- NOTE | 2017-03-21 04:00 | NUR ---
SPONGE BATH GIVEN LINEN CHANGED PT DENIES ANY PAIN REPOSITIONED ON TELMETRY SR
[2017-03-21] MEDS ORDERED: PIPERACILLIN/TAZOBACTAM 2.25 GM VIAL IV ONE ×2 (04:10)
--- NOTE | 2017-03-21 04:47 | NUR ---
PT SLEEPING NOT DISTRESS NOTED, ON; TELEMETRY SR
--- NOTE | 2017-03-21 06:16 | NUR ---
PT SLEEPING NOT DISTRESS NOTED IV ON LEFT AC INFUSING WELL RELATIVE AT BED SIDE
[2017-03-21] MEDS: HYDROcodone/APAP 5/325 MG 1 TAB TAB PO PRN ×3 (06:29→20:28)
--- NOTE | 2017-03-21 07:00 | NUR ---
RECEIVED REPORT FROM NIGHT NURSE, PT IS AAOX4 PASHTO SPEAKING, ON ROOM AIR, IV TO LEFT AC 20G SALINE LOCK. SKIN IS INTACT WITH PREVIOUS LAP BENJA ON 02/05. PT STATES NO PAIN AT THIS TIME, INITIAL ASSESSMENT COMPLETED, REVIEWED PLAN OF CARE WITH PT AND DAUGHTER BOTH VERBALIZED UNDERSTANDING, ALL SAFETY PRECAUTIONS MET. ALL NEEDS MET, CALL LIGHT WITHIN REACH. WILL CONTINUE TO MONITOR.
[2017-03-21] MEDS ORDERED: ALBUTEROL SULFATE/IPRATROPIU 3 ML SOL IH PRN (07:30)
[2017-03-21 08:00] VITALS: BP 112/56
--- NOTE | 2017-03-21 08:46 | NUR ---
DUE MEDICATIONS GIVEN, MOM AT BEDSIDE, ALL NEEDS MET. CALL LIGHT WITHIN REACH. WILL CONTINUE TO MONITOR. Addendum: 03/21/17 at 0947 by Claudia Restrepo RN DELETE. WRONG PT.
--- NOTE | 2017-03-21 08:56 | NUR ---
PATIENT HAS BEEN SCREENED AND CATEGORIZED MODERATE NUTRITION RISK. PATIENT WILL BE SEEN WITHIN 3-5 DAYS OF ADMISSION. 03/23/17-03/25/[address]
[2017-03-21] MEDS: LISINOPRIL 5 MG TAB PO SCH (09:00)
[2017-03-21] MEDS: DOCUSATE SODIUM 100 MG GELCAP PO SCH ×2 (09:02→20:31)
[2017-03-21] MEDS: ASPIRIN 81 MG TAB.CHEW PO SCH (09:07)
[2017-03-21] MEDS: PANTOPRAZOLE 40 MG TABEC PO SCH ×2 (09:07→20:32)
[2017-03-21] MEDS: ATORVASTATIN 20 MG TAB PO SCH (09:08)
[2017-03-21] MEDS: LACTOBACILLUS RHAMNOSUS GG 1 EACH CAP PO SCH (09:08)
[2017-03-21] MEDS: ALBUTEROL SULFATE/IPRATROPIU 3 ML SOL IH SCH ×2 (09:08→20:00)
[2017-03-21] MEDS: LACTULOSE 20 GM/30 ML UDC PO SCH ×4 (09:09→20:29)
[2017-03-21] MEDS: MAGNESIUM HYDROXIDE 2400 MG/30 ML UDC PO SCH (09:09)
--- NOTE | 2017-03-21 09:13 | NUR ---
DUE MEDICATIONS GIVEN, PT TOLERATED WELL, BP MEDICATION NOT GIVEN NURSERY ATTENDANT OF 106/60, HR 76. ALL NEEDS MET. CALL LIGHT WITHIN REACH. FAMILY AT BEDSIDE.
[2017-03-21 10:11] LABS: ANION GAP 9.6 (8-16); CALCIUM 8.8 mg/dL (8.5-10.1); CARBON DIOXIDE 26.9 mmol/L (21-32); CHLORIDE 104 mmol/L (98-107); CREATININE 0.7 mg/dL (0.6-1.3); GLUCOSE 98 mg/dL (74-106); POTASSIUM 3.5 mmol/L (3.5-5.1); SODIUM SERUM 137 mmol/L (136-145)
[2017-03-21 10:20] LABS: PHOSPHORUS 4.1 mg/dL (2.5-4.9)
[2017-03-21 10:22] LABS: UREA NITROGEN, BLOOD 12 mg/dL (7-18)
[2017-03-21 10:52] LABS: BASOPHILS # (AUTO) 0.3 K/uL (0.00-0.22); BASOPHILS % (AUTO) 3.5 % (0.0-2.0); EOSINOPHILS # (AUTO) 0.1 K/uL (0-0.4); EOSINOPHILS % (AUTO) 1.8 % (0.0-4.0); HEMATOCRIT 35.3 % (36-48); HEMOGLOBIN 11.3 g/dL (12.0-16.0); LYMPHOCYTES % (AUTO) 24.9 % (20.5-51.1); MEAN CORPUSCULAR HEMOGLOBIN 28 pg (27-31); MEAN CORPUSCULAR HGB CONC 32 g/dL (33-37); MEAN CORPUSCULAR VOLUME 87 fL (80-94); MONOCYTES # (AUTO) 1.1 K/uL (0.8-1.0); MONOCYTES % (AUTO) 13.3 % (1.7-9.3); NEUTROPHILS # (AUTO) 4.4 K/uL (1.8-7.7); NEUTROPHILS % (AUTO) 56.5 % (42.2-75.2); PLATELET COUNT (AUTO) 206 K/uL (140-450); RED BLOOD CELL COUNT(AUTO) 4.06 MIL/uL (4.20-5.40); RED CELL DISTRIBUTION WIDTH 15.7 % (11.6-13.7); WHITE BLOOD COUNT (AUTO) 7.9 K/uL (4.8-10.8)
--- NOTE | 2017-03-21 11:05 | NUR ---
PT CURRENTLY SLEEPING, DAUGHTER AT BEDSIDE. WILL CONTINUE TO MONITOR.
[2017-03-21] MEDS: NACL 0.9% 1,000 ML IV SCH ×2 (11:11→13:38)
[2017-03-21 12:00] VITALS: BP 118/60
--- NOTE | 2017-03-21 12:25 | NUR ---
DUE MEDICATION GIVEN, PT C/O ABD PAIN 01/22, MEDICATED PER MD ORDERS. ALL NEEDS MET. DAUGHTER AT BEDSIDE.
[2017-03-21] MEDS: SENNA 8.6 MG TAB PO SCH ×3 (13:37→20:32)
--- NOTE | 2017-03-21 13:54 | NUR ---
PT VOMITED 400CC, PT STATES SHE FEELS BETTER AFTER VOMITING. ALL NEEDS MET. CALL LIGHT WITHIN REACH.
[2017-03-21 16:00] VITALS: BP 105/52
--- NOTE | 2017-03-21 16:30 | NUR ---
PT HAD A LARGE SEMI SOFT BM. ALL NEEDS MET. WILL CONTINUE TO MONITOR.
[2017-03-21] MEDS ORDERED: BOWEL EVACUANT DRINK 4,000 ML PDS PO ONE (17:00)
[2017-03-21] MEDS: METOCLOPRAMIDE 10 MG/2 ML INJ VIAL IVP SCH (17:26)
--- NOTE | 2017-03-21 17:32 | NUR ---
DUE MEDICATIONS GIVEN. NO S/S OF DISTRESS NOTED. ALL NEEDS MET. FAMILY AT BED SIDE. WILL CONTINUE TO MONITOR.
--- NOTE | 2017-03-21 19:21 | NUR ---
ENDORSED PLAN OF CARE TO NIGHT NURSE, PT IN STABLE CONDITION, FAMILY AT BEDSIDE
--- NOTE | 2017-03-21 19:22 | NUR ---
RECEIVED PT FROM ZENA GARCIA PT IS AAOX4 AMBULATES WITH EGG GRADER ON TELEMETRY SR, IV ON LEFT AC INFUSING WELLL RELATIVES AT BED SIDE AND PT ON PREPARATION FOR COLONOSCOPY TOMORROW
[2017-03-21 20:00] VITALS: BP 133/71
[2017-03-21] MEDS: METOPROLOL 25 MG TAB PO SCH (20:31)
[2017-03-21] MEDS ORDERED: MAGNESIUM CITRATE 300 ML BTL PO ONE (22:00)
--- NOTE | 2017-03-21 22:00 | NUR ---
AFTER PAIN MEDIC GIVEN PT REMAIN STABLE NOT DISTRESS NOTED CONTINUING ON COLONOSCOPY PREPARATION DENIES ANY DISCOMFORT AT THIS TIME
[2017-03-22] VITALS: BP 113/88
[2017-03-22] MEDS: PIPER/TAZO 2.25GM/D5W PREMIX 50 ML IV SCH ×4 (00:36→20:53)
[2017-03-22] MEDS: METOCLOPRAMIDE 10 MG/2 ML INJ VIAL IVP SCH ×5 (00:38→23:28)
--- NOTE | 2017-03-22 01:48 | NUR ---
PT SLEEPING WELL NOT DISTRESS NOTED, REPOSITIONED Q2H IV ON LEFT AC INFUSING WELL
[2017-03-22] MEDS: NACL 0.9% 1,000 ML IV SCH (02:34)
[2017-03-22 04:00] VITALS: BP 140/71
--- NOTE | 2017-03-22 04:00 | NUR ---
SPONGE BAT GIVEN LINEN CHANGED PT HAVING A LIQUID STOOL YELLOW COLOR NOTM COMPLETED CLEAR
[2017-03-22] MEDS: HYDROcodone/APAP 5/325 MG 1 TAB TAB PO PRN ×2 (04:13→16:29)
[2017-03-22 06:18] LABS: BASOPHILS # (AUTO) 0.1 K/uL (0.00-0.22); BASOPHILS % (AUTO) 1.6 % (0.0-2.0); EOSINOPHILS # (AUTO) 0.1 K/uL (0-0.4); EOSINOPHILS % (AUTO) 1.8 % (0.0-4.0); HEMATOCRIT 33.7 % (36-48); HEMOGLOBIN 11.1 g/dL (12.0-16.0); LYMPHOCYTES # (AUTO) 1.2 K/uL (2.5-16.5); LYMPHOCYTES % (AUTO) 15.3 % (20.5-51.1); MEAN CORPUSCULAR HEMOGLOBIN 29 pg (27-31); MEAN CORPUSCULAR HGB CONC 33 g/dL (33-37); MEAN CORPUSCULAR VOLUME 87 fL (80-94); MONOCYTES % (AUTO) 11.9 % (1.7-9.3); NEUTROPHILS # (AUTO) 5.7 K/uL (1.8-7.7); NEUTROPHILS % (AUTO) 69.4 % (42.2-75.2); PLATELET COUNT (AUTO) 203 K/uL (140-450); RED BLOOD CELL COUNT(AUTO) 3.88 MIL/uL (4.20-5.40); RED CELL DISTRIBUTION WIDTH 15.4 % (11.6-13.7); WHITE BLOOD COUNT (AUTO) 8.1 K/uL (4.8-10.8)
--- NOTE | 2017-03-22 06:46 | NUR ---
PT NPO POST MN FOR EGD AND COLONOSCOPY STOOL YELLOW COLOR NOT COMPLETE CLEAR, SLEEPING AT THIS TIME SR ON TELE IV ON LEFT AC INFUSING WELL
[2017-03-22 06:52] LABS: ANION GAP 11.2 (8-16); CALCIUM 8.4 mg/dL (8.5-10.1); CHLORIDE 109 mmol/L (98-107); CREATININE 0.6 mg/dL (0.6-1.3); GLUCOSE 94 mg/dL (74-106); POTASSIUM 3.2 mmol/L (3.5-5.1); SODIUM SERUM 144 mmol/L (136-145); UREA NITROGEN, BLOOD 7 mg/dL (7-18)
[2017-03-22 07:01] LABS: PHOSPHORUS 2.8 mg/dL (2.5-4.9)
--- NOTE | 2017-03-22 07:10 | NUR ---
RECEIVED REPORT FROM SENIOR SUSTAINABILITY ADVISOR NURSE AT BEDSIDE. PT IS SLEEPING. UPDATED THE BOARD. PT HAS IV ON L AC 20G RUNNING NS@80. PT IS ON O2 2L NC, O2 SAT 95%. PT IS NPO AFTER MIDNIGHT FOR EGD AND COLONOSCOPY TODAY. DAUGHTER AT BEDSIDE. SCDS ON. BEDSIDE COMMODE AT BEDSIDE. CALL LIGHT WITHIN REACH. WILL CONTINUE TO MONITOR.
[2017-03-22 08:00] VITALS: BP 110/57
[2017-03-22] MEDS: MAGNESIUM HYDROXIDE 2400 MG/30 ML UDC PO SCH ×2 (08:43→08:54)
[2017-03-22] MEDS: LACTULOSE 20 GM/30 ML UDC PO SCH ×4 (08:43→16:29)
[2017-03-22] MEDS: LISINOPRIL 5 MG TAB PO SCH (08:44)
[2017-03-22] MEDS: SENNA 8.6 MG TAB PO SCH ×3 (08:44→16:29)
[2017-03-22] MEDS: LACTOBACILLUS RHAMNOSUS GG 1 EACH CAP PO SCH (08:44)
[2017-03-22] MEDS: PANTOPRAZOLE 40 MG TABEC PO SCH ×2 (08:44→20:53)
[2017-03-22] MEDS: ATORVASTATIN 20 MG TAB PO SCH (08:44)
[2017-03-22] MEDS: DOCUSATE SODIUM 100 MG GELCAP PO SCH (08:45)
[2017-03-22] MEDS: ASPIRIN 81 MG TAB.CHEW PO SCH (08:55)
[2017-03-22] MEDS: METOPROLOL 25 MG TAB PO SCH ×2 (08:57→20:53)
[2017-03-22] MEDS: ALBUTEROL SULFATE/IPRATROPIU 3 ML SOL IH SCH ×2 (09:27→20:33)
--- NOTE | 2017-03-22 09:40 | NUR ---
DR. CAVANAUGH GAVE VERBAL ORDER FOR D51/2NS 50ML FOR IVF. WILL CARRY OUT ORDER.
[2017-03-22 09:47] LABS: T4 (THYROXINE) 6.8 ug/dL (4.5-12.0)
[2017-03-22] MEDS ORDERED: DEXT 5% / NACL 0.45% 1,000 ML IV SCH (09:50)
[2017-03-22] MEDS ORDERED: MAGNESIUM CITRATE 300 ML BTL PO SCH (11:00)
[2017-03-22] MEDS ORDERED: KCL 20 MEQ/WATER INJ PREMIX 100 ML IV SCH (11:00)
--- NOTE | 2017-03-22 11:00 | NUR ---
PT REFUSED CITROMA AT THIS TIME. EDUCATED PT REGARDING IMPORTANCE OF TAKING CITROMA. PT STILL REFUSED. WILL ASK AGAIN LATER.
--- NOTE | 2017-03-22 11:34 | NUR ---
03/22/17 RD INITIAL ASSESSMENT COMPLETED PLEASE REFER TO NUTRITION ASSESSMENT UNDER CARE ACTIVITY FOR ESTIMATED NUTRITIONAL NEEDS. 1. WHEN MEDICALLY FEASIBLE, RESUME PO DIET TO START ON CLEAR LIQUID DIET AND ADVANCE TOLERATED TO REGULAR DIET 2. RD TO FOLLOW-UP 2-3 DAYS; HIGH RISK STEPAN CHOW, VERONICA
[2017-03-22 12:00] VITALS: BP 123/61
[2017-03-22] MEDS ORDERED: ONDANSETRON 4 MG/2 ML VIAL IVP PRN (13:15)
[2017-03-22] MEDS ORDERED: ONDANSETRON 8 MG in NACL 0.9% 50 ML IVP PRN (13:40)
--- NOTE | 2017-03-22 13:50 | NUR ---
REPORTED TO DR. Rebecca LIMON THAT PT STILL HAVE MANY DOTS OF POOP AT 1300. GAVE ORDER FOR CLEAR LIQUID TODAY AND TOMORROW AND WILL RESCHEDULE SURGERY.
--- NOTE | 2017-03-22 14:00 | NUR ---
PT POOPED AGAIN IN BEDSIDE COMMODE, STILL BROWN LIQUID WITH MANY DOTS OF POOP.
--- NOTE | 2017-03-22 14:05 | NUR ---
INFORMED PT AND DAUGHTER OF DR'S PLAN OF CARE. VERBALIZED UNDERSTANDING.
--- NOTE | 2017-03-22 14:28 | NUR ---
U/S TECH AT BEDSIDE PERFORMING U/S. PT C/O NAUSEA. ADMINISTERED ZOFRAN. WILL CONTINUE TO MONITOR.
[2017-03-22 16:00] VITALS: BP 135/72
--- NOTE | 2017-03-22 16:29 | NUR ---
PT ASKED FOR PAIN MED FOR PAIN IN ABDOMEN. WILL MEDICATE.
--- NOTE | 2017-03-22 18:23 | NUR ---
FAMILY VISITING PT AT BEDSIDE. PT IS TALKING AND APPEARS TO BE IN NO DISTRESS. WILL CONTINUE TO MONITOR.
--- NOTE | 2017-03-22 19:10 | NUR ---
RECEIVED REPORT FROM JOSE GARCIA AND BRIELLE AT BEDSIDE. INITIAL ASSESSMENT COMPLETED. PT AAO4. PT HAS IV ON LEFT AC G 20 INFUSING FLUIDS WELL. PT ON 02 2L NC. PT'S SKIN IS INTACT. ORIENTED PT TO ROOM AND SURROUNDINGS AND USE OF CALL LIGHT. EXPLAINED PLAN OF CARE TO PT AND SHE VERBALIZES UNDERSTANDING. PT HAS SCDS ON. PT'S FAMILY MEMBERS AT BEDSIDE. FALL/SAFETY MEASURES IN PLACE. CALL LIGHT WITHIN REACH, WILL CONTINUE TO MONITOR PT.
--- NOTE | 2017-03-22 19:15 | NUR ---
ENDORSED CARE OF PT TO CASINO HOST NURSE. PT IN STABLE CONDITION.
[2017-03-22 20:00] VITALS: BP 116/66
[2017-03-22] MEDS: AMITRIPTYLINE 10 MG TAB PO SCH (20:53)
--- NOTE | 2017-03-22 20:59 | NUR ---
PT TOLERATED 2100 MEDS WELL. WILL CONTINUE TO MONITOR PT.
[2017-03-22] MEDS ORDERED: POTASSIUM CHLORIDE 20% 40 MEQ/15 ML UDC GT SCH (21:00)
--- NOTE | 2017-03-22 22:40 | NUR ---
PT'S IV LEAKING. PT'S FAMILY MEMBER ASKED TO REMOVE IV. IV REMOVED WITH TIP INTACT. NEW IV STARTED ON RIGHT HAND G 22. PT TOLERATED IT WELL. WILL CONTINUE TO MONITOR PT.
--- NOTE | 2017-03-22 23:32 | NUR ---
0000 MEDICATION GIVEN. PT SLEEPING. GRANDDAUGHTER AT BEDSIDE. WILL CONTINUE TO MONITOR PT.
[2017-03-23] VITALS: BP 123/67
--- NOTE | 2017-03-23 00:35 | NUR ---
PT SLEEPING AT THIS TIME, NO SIGNS OF DISTRESS OR DISCOMFORT NOTED. GRANDDAUGHTER AT BEDSIDE, WILL CONTINUE TO MONITOR PT.
--- NOTE | 2017-03-23 02:25 | NUR ---
PT COMPLAINING OF LOWER ABDOMINAL PAIN. PT REQUESTING NORCO. VS WILL MEDICATE ORDERED.
[2017-03-23] MEDS: HYDROcodone/APAP 5/325 MG 1 TAB TAB PO PRN ×3 (02:28→21:19)
[2017-03-23 04:00] VITALS: BP 127/68
[2017-03-23 05:35] LABS: BASOPHILS # (AUTO) 0.1 K/uL (0.00-0.22); BASOPHILS % (AUTO) 1.4 % (0.0-2.0); EOSINOPHILS # (AUTO) 0.1 K/uL (0-0.4); EOSINOPHILS % (AUTO) 1.4 % (0.0-4.0); HEMATOCRIT 33.1 % (36-48); HEMOGLOBIN 10.9 g/dL (12.0-16.0); LYMPHOCYTES # (AUTO) 2.2 K/uL (2.5-16.5); LYMPHOCYTES % (AUTO) 22.1 % (20.5-51.1); MEAN CORPUSCULAR HEMOGLOBIN 28 pg (27-31); MEAN CORPUSCULAR HGB CONC 33 g/dL (33-37); MEAN CORPUSCULAR VOLUME 87 fL (80-94); MONOCYTES # (AUTO) 1.2 K/uL (0.8-1.0); MONOCYTES % (AUTO) 11.8 % (1.7-9.3); NEUTROPHILS # (AUTO) 6.5 K/uL (1.8-7.7); NEUTROPHILS % (AUTO) 63.3 % (42.2-75.2); PLATELET COUNT (AUTO) 211 K/uL (140-450); RED BLOOD CELL COUNT(AUTO) 3.83 MIL/uL (4.20-5.40); RED CELL DISTRIBUTION WIDTH 15.7 % (11.6-13.7); WHITE BLOOD COUNT (AUTO) 10.1 K/uL (4.8-10.8)
[2017-03-23] MEDS: METOCLOPRAMIDE 10 MG/2 ML INJ VIAL IVP SCH ×2 (05:47→12:00)
[2017-03-23] MEDS: PIPER/TAZO 2.25GM/D5W PREMIX 50 ML IV SCH ×2 (05:47→13:11)
--- NOTE | 2017-03-23 05:50 | NUR ---
0500 AND 0600 MEDS GIVEN. PT TOLERATED IT WELL. WILL CONTINUE TO MONITOR PT.
[2017-03-23 06:16] LABS: ANION GAP 9.7 (8-16); CALCIUM 8.1 mg/dL (8.5-10.1); CARBON DIOXIDE 27.5 mmol/L (21-32); CHLORIDE 109 mmol/L (98-107); CREATININE 0.5 mg/dL (0.6-1.3); GLUCOSE 107 mg/dL (74-106); POTASSIUM 3.2 mmol/L (3.5-5.1); SODIUM SERUM 143 mmol/L (136-145); UREA NITROGEN, BLOOD 5 mg/dL (7-18)
[2017-03-23 06:23] LABS: PHOSPHORUS 2.2 mg/dL (2.5-4.9)
--- NOTE | 2017-03-23 07:37 | NUR ---
ENDORSED PT IN STABLE CONDITION TO JOSE CASIANO.
--- NOTE | 2017-03-23 07:40 | NUR ---
RECEIVED REPORT FROM JOSE CARO. PT IS A/OX4, AMBULATES WITH ASSIST, IV ON THE LT FA, PATENT, INTACT, FLUSHING WELL, NO S/S OF RESPIRATORY DISTRESS OR DISCOMFORT NOTED, SAFETY/FALL PRECAUTIONS ARE IN PLACE, DISCUSSED PLAN OF CARE WITH PT, PT AND DAUGHTER VERBALIZED UNDERSTANDING, DAUGHTER IS AT BEDSIDE, CALL LIGHT WITHIN REACH, WILL CONTINUE TO MONITOR.
[2017-03-23 08:00] VITALS: BP 139/67
[2017-03-23] MEDS: ASPIRIN 81 MG TAB.CHEW PO SCH (08:47)
[2017-03-23] MEDS: LACTOBACILLUS RHAMNOSUS GG 1 EACH CAP PO SCH (08:47)
[2017-03-23] MEDS: ATORVASTATIN 20 MG TAB PO SCH (08:47)
[2017-03-23] MEDS: LACTULOSE 20 GM/30 ML UDC PO SCH ×2 (08:47→13:00)
[2017-03-23] MEDS: PANTOPRAZOLE 40 MG TABEC PO SCH (08:48)
[2017-03-23] MEDS: METOPROLOL 25 MG TAB PO SCH (08:48)
[2017-03-23] MEDS: MAGNESIUM HYDROXIDE 2400 MG/30 ML UDC PO SCH (08:48)
[2017-03-23] MEDS: SENNA 8.6 MG TAB PO SCH ×2 (08:49→13:00)
[2017-03-23] MEDS: LISINOPRIL 5 MG TAB PO SCH (08:50)
[2017-03-23] MEDS: ALBUTEROL SULFATE/IPRATROPIU 3 ML SOL IH SCH ×2 (09:24→20:00)
--- NOTE | 2017-03-23 09:40 | NUR ---
PT RESTING IN BED, FAMILY IS AT BEDSIDE, CALL LIGHT WITHIN REACH.
[2017-03-23] MEDS ORDERED: DEXT 5% / NACL 0.45% 1,000 ML IV SCH (09:50)
[2017-03-23] MEDS ORDERED: KCL 20 MEQ/WATER INJ PREMIX 200 ML IV SCH (10:00)
--- NOTE | 2017-03-23 11:30 | NUR ---
PT SLEEPING IN BED AT THIS TIME, FAMILY IS AT BEDSIDE.
[2017-03-23 12:00] VITALS: BP 148/72
[2017-03-23] MEDS ORDERED: diphenhydrAMINE 50 MG/ML VIAL ONE (12:37)
[2017-03-23] MEDS ORDERED: fentaNYL 0.05 MG/ML VIAL ONE ×2 (12:37)
[2017-03-23] MEDS ORDERED: MIDAZOLAM 2 MG/2 ML VIAL ONE (12:37)
--- NOTE | 2017-03-23 13:13 | NUR ---
ORDER WRITTEN ON 03/22/17 FOR HLOC TRANSFER WAS CANCELLED TODAY./
--- NOTE | 2017-03-23 13:21 | NUR ---
PT OFF UNIT TO HAVE EGD AND COLONSCOPY DONE, PT LEFT VIA BED, STABLE.
--- NOTE | 2017-03-23 14:35 | NUR ---
PATIENT RETURNED TO UNIT FROM EGD AND COLONOSCOPY PT VS 115/51, HR:91, O2 SAT 97%, , RESP:18. T:97.0, O2 2L NC, PT STABLE AT THIS TIME.
[2017-03-23 16:00] VITALS: BP 138/64
--- NOTE | 2017-03-23 16:30 | NUR ---
PT IS SLEEPING IN BED AT THIS TIME, FAMILY IS AT BEDSIDE.
--- NOTE | 2017-03-23 18:00 | NUR ---
PT AMBULATING DOWN THE [place]CAM[place], DAUGHTER IS ASSISTING WITH AMBULATION.
[2017-03-23] MEDS ORDERED: FUROSEMIDE 40 MG/4 ML VIAL IVP SCH (18:49)
--- NOTE | 2017-03-23 19:10 | NUR ---
ENDORSED PT TO JOSE CAMPOS. FOR CONTINUITY OF CARE, PT STABLE AT THIS TIME, FAMILY IS AT BEDSIDE.
--- NOTE | 2017-03-23 19:30 | NUR ---
RECEIVED REPORT FROM DAY RN AT BEDSIDE, PATIENT IN STABLE CONDITION AAOX4, RESTING IN BED, ON O2 2L NC, NO SOB OR SIGN OF DISTRESS, SKIN INTACT, PATIENT STATED PAIN IN ABDOMEN, WILL MEDICATE PER MD ORDER, IV TO LEFT FA PATENT AND INTACT, DISCUSSED PLAN OF CARE WITH PATIENT, PATIENT VERBALIZED UNDERSTANDING, FAMILY AT BEDSIDE, SAFETY MEASURES CHECKED, CALL LIGHT WITHIN REACH. WILL CONTINUE TO MONITOR.
[2017-03-23 20:00] VITALS: BP 110/61
[2017-03-23] MEDS: POTASSIUM CHLORIDE 20% 40 MEQ/15 ML UDC PO SCH (20:44)
[2017-03-23] MEDS: AMITRIPTYLINE 10 MG TAB PO SCH (20:44)
--- NOTE | 2017-03-23 20:48 | NUR ---
PM MEDS ADMINISTERED, PATIENT TOLERATED WELL, CALL LIGHT WITHIN REACH. WILL CONTINUE TO MONITOR.
--- NOTE | 2017-03-23 22:57 | NUR ---
PATIENT SLEEPING, NO SIGN OF DISTRESS, CALL LIGHT WITHIN REACH. WILL CONTINUE TO MONITOR
[2017-03-24] VITALS: BP 116/53
--- NOTE | 2017-03-24 00:28 | NUR ---
VITAL SIGNS STABLE, NO SIGN OF DISTRESS, PATIENT HAD REMOVED NASAL CANNULA O2 SAT AT 89%, REMINDED PATIENT IMPORTANCE OF KEEPING OXYGEN ON, PATIENT VERBALIZED UNDERSTANDING, CALL LIGHT WITHIN REACH. WILL CONTINUE TO MONITOR.
--- NOTE | 2017-03-24 02:34 | NUR ---
PATIENT SLEEPING COMFORTABLE, NO SIGN OF DISTRESS, CALL LIGHT WITHIN REACH. WILL CONTINUE TO MONITOR.
[2017-03-24 04:00] VITALS: BP 115/57
--- NOTE | 2017-03-24 04:10 | NUR ---
PATIENT SLEEPING COMFORTABLE, NO SIGN OF DISTRESS, CALL LIGHT WITHIN REACH. WILL CONTINUE TO MONITOR
[2017-03-24 06:43] LABS: EOSINOPHILS # (AUTO) 0.2 K/uL (0-0.4); MEAN CORPUSCULAR VOLUME 87 fL (80-94)
[2017-03-24 06:51] LABS: AMYLASE 19 U/L (25-115); LIPASE 84 U/L (73-393)
[2017-03-24] MEDS: ALBUTEROL SULFATE/IPRATROPIU 3 ML SOL IH SCH (06:52)
[2017-03-24 06:59] LABS: ANION GAP 8.6 (8-16); CALCIUM 8.5 mg/dL (8.5-10.1); CARBON DIOXIDE 30.6 mmol/L (21-32); CHLORIDE 104 mmol/L (98-107); CREATININE 0.6 mg/dL (0.6-1.3); GLUCOSE 76 mg/dL (74-106); POTASSIUM 3.2 mmol/L (3.5-5.1); SODIUM SERUM 140 mmol/L (136-145); UREA NITROGEN, BLOOD 7 mg/dL (7-18)
--- NOTE | 2017-03-24 07:29 | NUR ---
ENDORSED PATIENT TO DAY RN AT BEDSIDE, PATIENT IN STABLE CONDITION.
--- NOTE | 2017-03-24 07:30 | NUR ---
REPORT RECEIVED FROM DIAMOND SELECTOR, PT AAOX4, SITTING UP AT SIDE OF BED, RESP EVEN UNLABORED ON 2L NC, SKIN WARM DRY COLOR WNL, ABD ROUND SOFT, NON TENDER, PT DENIES PAIN OR NAUSEA, REPORTS FEELING HUNGRY, BREAKFAST TRAY ON THE WAY, DAUGHTER AT BEDSIDE, PLAN OF CARE REVIEWED, NO QUESTIONS OR CONCERNS, CALL KIM WITHIN REACH, SIDE RAILS UP, BED LOCKED IN LOW POSITION, WILL CONTINUE TO MONITOR.
[2017-03-24 08:00] VITALS: BP 123/71
[2017-03-24 08:12] LABS: BASOPHILS # (AUTO) 0.4 K/uL (0.00-0.22); BASOPHILS % (AUTO) 4.1 % (0.0-2.0); EOSINOPHILS % (AUTO) 2.8 % (0.0-4.0); HEMATOCRIT 34.3 % (36-48); HEMOGLOBIN 11.1 g/dL (12.0-16.0); LYMPHOCYTES # (AUTO) 2.1 K/uL (2.5-16.5); LYMPHOCYTES % (AUTO) 24.6 % (20.5-51.1); MEAN CORPUSCULAR HEMOGLOBIN 28 pg (27-31); MEAN CORPUSCULAR HGB CONC 32 g/dL (33-37); MONOCYTES # (AUTO) 0.8 K/uL (0.8-1.0); MONOCYTES % (AUTO) 9.8 % (1.7-9.3); NEUTROPHILS # (AUTO) 5.2 K/uL (1.8-7.7); NEUTROPHILS % (AUTO) 58.7 % (42.2-75.2); PLATELET COUNT (AUTO) 213 K/uL (140-450); RED BLOOD CELL COUNT(AUTO) 3.93 MIL/uL (4.20-5.40); RED CELL DISTRIBUTION WIDTH 15.4 % (11.6-13.7); WHITE BLOOD COUNT (AUTO) 8.7 K/uL (4.8-10.8)
[2017-03-24] MEDS: ATORVASTATIN 20 MG TAB PO SCH (08:18)
[2017-03-24] MEDS: ASPIRIN 81 MG TAB.CHEW PO SCH (08:18)
[2017-03-24] MEDS: POTASSIUM CHLORIDE 20% 40 MEQ/15 ML UDC PO SCH (08:19)
[2017-03-24] MEDS: LACTOBACILLUS RHAMNOSUS GG 1 EACH CAP PO SCH (08:19)
[2017-03-24] MEDS: LISINOPRIL 5 MG TAB PO SCH (08:19)
[2017-03-24] MEDS ORDERED: LACTULOSE 20 GM/30 ML UDC PO SCH (09:00)
[2017-03-24] MEDS ORDERED: POTASSIUM CHLORIDE 10 MEQ TABER PO SCH (09:05)
--- NOTE | 2017-03-24 09:40 | NUR ---
DR LEBRON AT BEDSIDE FOR EVAL
--- NOTE | 2017-03-24 10:03 | NUR ---
03/24/17 RD FOLLOW UP COMPLETED PLEASE REFER TO NUTRITION PROGRESS NOTE UNDER CARE ACTIVITY FOR ESTIMATED NUTRITION NEEDS. RD RECOMMENDATIONS: 1. CONTINUE ON REGULAR DIET TOLERATED. 2. RD WILL F/U 3-5 DAYS; MODERATE RISK. CAROL CONSTANTINO MS, RDN
[2017-03-24 11:59] VITALS: BP 131/77
[2017-03-24] MEDS ORDERED: DOCU-264 PO (12:20)
[2017-03-24] MEDS ORDERED: ACET-2869 PO (12:20)
--- NOTE | 2017-03-24 13:45 | NUR ---
DISCHARGE INSTRUCTION AND RX GIVEN AND EXPLAINED TO PT AND FAMILY VIA FRENCH SPEAKING NURSE, PT'S FAMILY VERBALIZED FULL UNDERSTANDING, PT TO F/U WITH DR LEBRON AT [facility] ON SUNDAY, PHONE NUMBER AND ADDRESS PROVIDED, IV DC'D, CATH TIP INTACT, BLEEDING CONTROLLED, PT JESUS WELL.
--- NOTE | 2017-03-24 14:10 | NUR ---
DC HOME NOW, ESCORTED OUT IN WHEELCHAIR.
[2017-04-05 15:42] LABS: HEMOGLOBIN A1C 6.1 % (4.8-5.6)
== END 2017-03-24 14:10 | disposition home or self-care (01) | DRG 282 ==
LOC: MED 14:00 → MTU 20:06
PROVIDERS: ADMIT Family Medicine; ATTEND Family Medicine
PROC: 0DJD8ZZ Inspection of Lower Intestinal Tract, Via Natural or Artificial Opening Endoscopic (ICD-10-PCS; 2017-03-23)
PROC: 0DJ08ZZ Inspection of Upper Intestinal Tract, Via Natural or Artificial Opening Endoscopic (ICD-10-PCS; principal; 2017-03-23 13:00)
PROC: 0DB68ZX Excision of Stomach, Via Natural or Artificial Opening Endoscopic, Diagnostic (ICD-10-PCS; 2017-03-23 13:00)
DX: K85.90 Acute pancreatitis without necrosis or infection, unspecified (principal); J69.0 Pneumonitis due to inhalation of food and vomit; E43 Unspecified severe protein-calorie malnutrition; N39.0 Urinary tract infection, site not specified; D64.9 Anemia, unspecified; E87.8 Other disorders of electrolyte and fluid balance, not elsewhere classified; K56.41 Fecal impaction; K21.9 Gastro-esophageal reflux disease without esophagitis; M94.0 Chondrocostal junction syndrome [Tietze]; E87.6 Hypokalemia
CPT/HCPCS: 36415; 71010; 76705; 80048; 80053; 81001; 82150; 82378; 83036; 83605; 83690; 83735; 83880; 84100; 84436; 84439; 84443; 84479; 84484; 85025; 85610; 85730; 86301; 86677; 87040; 87081; 87086; 93005; 94640; 96361; 96365; 99285; J1170; J1200; J1940; J2250; J2270; J2405; J2543; J2765; J3010; J3480; J7030; J7060; J7620; Q0092; Q9967

== ENCOUNTER 2017-04-07 17:16 | Inpatient (IN) | payer MEDICAID ==
[~2017-04-07] VITALS: Ht 147.3 cm; Wt 36.7 kg
[~2017-04-07 17:16] MED LIST changes: +ACET-2869 PO; +DOCU-264 PO; -DOCU-67 PO; -HYDR-4446 PO
[2017-04-07 19:09] VITALS: BP 181/87
--- NOTE | 2017-04-07 22:35 | NUR ---
PATIENT AMBULATED TO ER BED 4.
--- NOTE | 2017-04-07 22:40 | NUR ---
PATIENT BEING EVALUATED BY DR. MCKEON.
--- NOTE | 2017-04-07 22:40 | NUR ---
PATIENT PRESENTS TO ED WITH C/O AB AND VAGINAL PAIN S/P ENDOSCOPY/GALLSTONES REMOVED 1 MONTH AGO AND SINCE THEN THE PAIN HAS NOT YET CEASED. PT DENIES N/V/D; SKIN IS PINK/WARM/DRY; AAOX4 WITH EVEN AND STEADY GAIT; LUNGS CLEAR BL; HR EVEN AND REGULAR; PT DENIES ANY FEVER, CP, SOB, OR COUGH AT THIS TIME; PATIENT STATES PAIN OF 8/10 AT THIS TIME; VSS; PATIENT POSITIONED FOR COMFORT; HOB ELEVATED; BEDRAILS UP X2; BED DOWN. ER MD MADE AWARE OF PT STATUS.
--- NOTE | 2017-04-08 00:03 | NUR ---
PT STATES SHE PRODUCED A URINE SAMPLE WHEN SHE WAS TRIAGED BUT THE SAMPLE IS NOT LOCATED IN THE ER. I CALLED LAB TO SEE IF THE URINE WAS THERE AND NO URINE SAMPLE IS FOUND IN THE LAB. PT HAS BEEN INFORMED, AND ASKED TO PRODUCE ANOTHER SAMPLE. ER MD DR MCKEON AWARE.
[2017-04-08 00:06] LABS: HEMATOCRIT 37.9 % (36-48); HEMOGLOBIN 12.2 g/dL (12.0-16.0); MEAN CORPUSCULAR HEMOGLOBIN 28 pg (27-31); MEAN CORPUSCULAR HGB CONC 32 g/dL (33-37); MEAN CORPUSCULAR VOLUME 88 fL (80-94); PLATELET COUNT (AUTO) 200 K/uL (140-450); RED BLOOD CELL COUNT(AUTO) 4.29 MIL/uL (4.20-5.40); RED CELL DISTRIBUTION WIDTH 15.8 % (11.6-13.7); WHITE BLOOD COUNT (AUTO) 9.9 K/uL (4.8-10.8)
[2017-04-08 00:20] LABS: BILIRUBIN,URINE NEGATIVE (NEGATIVE); BLOOD, URINE 2+ (NEGATIVE); COLOR,URINE YELLOW (YELLOW); LEUKOCYTE ESTERASE ,URINE NEGATIVE (NEGATIVE); NITRITE, URINE NEGATIVE (NEGATIVE); PROTEIN,URINE NEGATIVE (NEGATIVE); UGLUCOSE NEGATIVE (NEGATIVE); UROBILINOGEN,URINE 0.2 EU/dL (0.2 - 1)
[2017-04-08 00:21] LABS: APPEARANCE,URINE SLIGHTLY HAZY (CLEAR)
[2017-04-08 00:26] LABS: INR 1.1 (0.8-1.2); PARTIAL THROMBOPLASTIN TIME 27.6 secs (22-35.6)
[2017-04-08 00:27] LABS: LYMPHOCYTES % (MANUAL) 12 % (20-46); MONOCYTES % (MANUAL) 4 % (5-12); NEUTROPHILS % (MANUAL) 84 (43-65)
[2017-04-08 00:29] LABS: ALANINE AMINOTRANSFERASE 16 U/L (12-78); ALBUMIN 3.1 g/dL (3.4-5.0); ALKALINE PHOSPHATASE 88 U/L (46-116); ANION GAP 12.7 (8-16); ASPARTATE AMINOTRANSFERASE 18 U/L (15-37); CALCIUM 8.8 mg/dL (8.5-10.1); CARBON DIOXIDE 30.2 mmol/L (21-32); CHLORIDE 100 mmol/L (98-107); CREATININE 0.5 mg/dL (0.6-1.3); GLUCOSE 104 mg/dL (74-106); SODIUM SERUM 140 mmol/L (136-145); UREA NITROGEN, BLOOD 6 mg/dL (7-18)
[2017-04-08 00:31] LABS: POTASSIUM 2.9 mmol/L (3.5-5.1)
[2017-04-08 00:33] LABS: RBC,URINE 3-10 (FEW) /HPF (0-5); WBC,URINE 0-5 (RARE) /HPF (0-5)
[2017-04-08 00:34] LABS: BACTERIA,URINE 1+ /HPF (None Seen)
[2017-04-08 00:35] LABS: SQUAMOUS EPITHELIAL CELL,UR 0-3 (FEW) /LPF (0-3 (FEW))
[2017-04-08] MEDS ORDERED: POTASSIUM CHLORIDE 20% 40 MEQ/15 ML UDC PO ONE (00:40)
[2017-04-08] MEDS ORDERED: ONDANSETRON 4 MG/2 ML VIAL IVP PRN (01:25)
[2017-04-08] MEDS ORDERED: ACETAMINOPHEN 325 MG TAB PO PRN (01:25)
[2017-04-08] MEDS ORDERED: SIMETHICONE 80 MG TAB.CHEW PO PRN (01:35)
[2017-04-08] MEDS ORDERED: NITROGLYCERIN 0.4 MG TAB SL PRN (01:35)
--- NOTE | 2017-04-08 01:52 | NUR ---
Patient will be admitted to care of DR ALEGRIA. Admited to TELE 110A. Will go to room 110A. Belongings list completed. Report to HEIKE GARCIA.
[2017-04-08] MEDS: NACL 0.9% 1,000 ML IV SCH ×2 (02:13→22:18)
[2017-04-08 02:15] VITALS: BP 145/73
--- NOTE | 2017-04-08 02:15 | NUR ---
RECEIVED PT FROM ER VIA JEROMY MELO GUAMANIAN SPEAKER AAOX4 AMBULATES WITH AGILE JAVA DEVELOPER, TERRELL ON RT WRIST PATENT ON TELEMETRY ST RELATIVE AT BED SIDE HELLP WITH INFORMATION TO ADMIT THE PT PT IS ORIENTED TO THE FLOOR CALL LIGHT WITHIN REACH
[2017-04-08 02:50] LABS: CHOL/HDL RATIO 2.7 (1-4.5); FREE T4 (FREE THYROXINE) 1.52 ng/dL (0.76-1.46); MAGNESIUM 1.8 mg/dL (1.8-2.4); PHOSPHORUS 3.3 mg/dL (2.5-4.9); THYROID STIMULATING HORMONE 0.43 uIU/mL (0.34-3.76)
[2017-04-08 04:00] VITALS: BP 117/64
--- NOTE | 2017-04-08 04:00 | NUR ---
PT SLEEPING , DENIES ANY PAIN REPOSITIONED Q2H IV ON RT WRIST INFUSING WELL, ON TELEMETRY ST
[2017-04-08 04:03] LABS: LACTIC ACID 1.1 mmol/L (0.4-2.0)
--- NOTE | 2017-04-08 06:41 | NUR ---
PT USING BSC VOIDING WELL , ST ON TELEMETRY, DENIES ANY PAIN
--- NOTE | 2017-04-08 07:10 | NUR ---
RECEIVED PATIENT FROM NIGHT RN FOR CONTINUITY OF CARE. PATIENT IS AWAKE, ORIENTED TO PERSON, PLACE, DATE AND TIME. PERIPHERAL IV TO RIGHT WRIST PATENT AND INFUSING WELL. URINE AND BOWEL CONTINENT, ABLE TO AMBULATE TO THE RESTROOM. SKIN WARM TO TOUCH WNL, TOENAILS WNL, NO EDEMA, NO HAIR GROWTH AND +2 BILATERAL PEDAL PULSES. ABLE TO TURN SELF WITH MINIMAL ASSISTANCE. CALL LIGHT WITHIN REACH. NO COMPLAINTS OF CHEST PAIN MADE AT THIS TIME. WILL CONTINUE TO MONITOR PATIENT.
[2017-04-08 08:00] VITALS: BP 153/82
[2017-04-08] MEDS: LISINOPRIL 5 MG TAB PO SCH (09:00)
[2017-04-08] MEDS: METOPROLOL 25 MG TAB PO SCH ×2 (09:00→21:18)
[2017-04-08] MEDS: ASPIRIN 81 MG TAB.CHEW PO SCH (09:00)
[2017-04-08] MEDS: PANTOPRAZOLE 40 MG INJ VIAL IVP SCH (09:00)
[2017-04-08] MEDS: DOCUSATE SODIUM 100 MG GELCAP PO SCH ×2 (09:00→21:17)
[2017-04-08] MEDS ORDERED: PANTOPRAZOLE 40 MG TABEC PO SCH (09:00)
--- NOTE | 2017-04-08 09:30 | NUR ---
MORNING MEDS GIVEN, PATIENT TOLERATED WELL.
[2017-04-08 12:00] VITALS: BP 128/66
[2017-04-08 14:28] LABS: BASOPHILS # (AUTO) 0.3 K/uL (0.00-0.22); EOSINOPHILS # (AUTO) 0.2 K/uL (0-0.4); HEMATOCRIT 36.2 % (36-48); HEMOGLOBIN 11.6 g/dL (12.0-16.0); MEAN CORPUSCULAR HEMOGLOBIN 28 pg (27-31); MEAN CORPUSCULAR HGB CONC 32 g/dL (33-37); MEAN CORPUSCULAR VOLUME 89 fL (80-94); NEUTROPHILS # (AUTO) 7.4 K/uL (1.8-7.7); PLATELET COUNT (AUTO) 189 K/uL (140-450); RED BLOOD CELL COUNT(AUTO) 4.09 MIL/uL (4.20-5.40); RED CELL DISTRIBUTION WIDTH 16.2 % (11.6-13.7); WHITE BLOOD COUNT (AUTO) 9.9 K/uL (4.8-10.8)
[2017-04-08 14:40] LABS: CALCIUM 8.8 mg/dL (8.5-10.1); CARBON DIOXIDE 25.2 mmol/L (21-32); CHLORIDE 102 mmol/L (98-107); CREATININE 0.4 mg/dL (0.6-1.3); GLUCOSE 86 mg/dL (74-106); POTASSIUM 3.2 mmol/L (3.5-5.1); SODIUM SERUM 139 mmol/L (136-145); UREA NITROGEN, BLOOD 6 mg/dL (7-18)
[2017-04-08] MEDS: HYDROcodone/APAP 7.5/325 MG 1 TAB PO PRN (15:27)
[2017-04-08] MEDS ORDERED: POTASSIUM CHLORIDE 20% 40 MEQ/15 ML UDC PO SCH (15:31)
[2017-04-08 16:00] VITALS: BP 133/65
--- NOTE | 2017-04-08 19:06 | NUR ---
REPORT GIVEN TO NIGHT RN FOR CONTINUITY OF CARE. PATIENT IN STABLE CONDITION.
--- NOTE | 2017-04-08 19:10 | NUR ---
RECEIVED PT FROM PRECIOUS RN PT IS AAOX4 AMBULATES WITH YARD LOADER OPERATOR ON TELEMETRY SR, IV ON RT WRIST INFUSING WELL RELATIVES AT BED SIDE INITIAL ASSESSMENT DONE
[2017-04-08 20:00] VITALS: BP 119/63
[2017-04-08] MEDS: ATORVASTATIN 20 MG TAB PO SCH (21:18)
--- NOTE | 2017-04-08 22:00 | NUR ---
PT IS ASSISTED TO USE BSC, VOIDING WELL ON TELE SR REMAIN STABLE DENIES ANY PAIN
[2017-04-09] VITALS: BP 141/67
--- NOTE | 2017-04-09 01:20 | NUR ---
PT ON CLOSE MONITORING REPOSITIONED Q2H,SLEEPING WELL AT THIS TIME SR ON TELMETRY
[2017-04-09 04:00] VITALS: BP 141/68
--- NOTE | 2017-04-09 04:00 | NUR ---
SPONGE BATH GIVEN LINEN CHANGED , REPOSITIONED, ON TELEMETRY SR
[2017-04-09] MEDS: HYDROcodone/APAP 7.5/325 MG 1 TAB PO PRN ×3 (04:18→23:56)
--- NOTE | 2017-04-09 05:20 | NUR ---
AFTER PAIN ;MEDIC GIVEN PLT REMAINSTABLE SLEEPING WELL IV TKO O;N RT HAND INFUSING WELL
--- NOTE | 2017-04-09 06:14 | NUR ---
PT REMAIN STABLE USING BSC VOIDING WELL DENIES ANY PAIN AT THIS TIME ON TELEMETRY SR
[2017-04-09 06:31] LABS: BASOPHILS # (AUTO) 0.2 K/uL (0.00-0.22); BASOPHILS % (AUTO) 1.8 % (0.0-2.0); EOSINOPHILS # (AUTO) 0.1 K/uL (0-0.4); EOSINOPHILS % (AUTO) 0.8 % (0.0-4.0); HEMATOCRIT 33.6 % (36-48); LYMPHOCYTES # (AUTO) 1.4 K/uL (2.5-16.5); LYMPHOCYTES % (AUTO) 16.6 % (20.5-51.1); MEAN CORPUSCULAR HEMOGLOBIN 29 pg (27-31); MEAN CORPUSCULAR HGB CONC 33 g/dL (33-37); MEAN CORPUSCULAR VOLUME 89 fL (80-94); MONOCYTES # (AUTO) 0.7 K/uL (0.8-1.0); MONOCYTES % (AUTO) 8.7 % (1.7-9.3); NEUTROPHILS # (AUTO) 6.2 K/uL (1.8-7.7); NEUTROPHILS % (AUTO) 72.1 % (42.2-75.2); PLATELET COUNT (AUTO) 173 K/uL (140-450); RED BLOOD CELL COUNT(AUTO) 3.77 MIL/uL (4.20-5.40); WHITE BLOOD COUNT (AUTO) 8.6 K/uL (4.8-10.8)
[2017-04-09 06:38] LABS: ANION GAP 10.1 (8-16); CALCIUM 8.3 mg/dL (8.5-10.1); CARBON DIOXIDE 27.4 mmol/L (21-32); CHLORIDE 104 mmol/L (98-107); CREATININE 0.5 mg/dL (0.6-1.3); GLUCOSE 89 mg/dL (74-106); POTASSIUM 3.5 mmol/L (3.5-5.1); SODIUM SERUM 138 mmol/L (136-145); UREA NITROGEN, BLOOD 11 mg/dL (7-18)
--- NOTE | 2017-04-09 07:00 | NUR ---
PT ALERT AND ORIENTED X4, BREATHING EVENLY AND UNLABORED. ICELANDIC SPEAKING. NO SIGNS OF ACUTE DISTRESS. SKIN IS WARM AND DRY. NO C/O ANY BOWEL OR BLADDER DISCOMFORT. ABLE TO AMBULATE WITH ASSIST. NO C/O ANY PAIN AT THIS TIME, ALL NEEDS ATTENDED, SAFETY PRECAUTIONS MAINTAINED. CALL LIGHT WITHIN REACH.
[2017-04-09 07:52] VITALS: BP 118/63
[2017-04-09] MEDS: LISINOPRIL 5 MG TAB PO SCH (08:11)
[2017-04-09] MEDS: ASPIRIN 81 MG TAB.CHEW PO SCH (08:11)
[2017-04-09] MEDS: PANTOPRAZOLE 40 MG INJ VIAL IVP SCH (08:12)
[2017-04-09] MEDS: DOCUSATE SODIUM 100 MG GELCAP PO SCH ×2 (08:12→20:45)
[2017-04-09] MEDS: METOPROLOL 25 MG TAB PO SCH (08:12)
--- NOTE | 2017-04-09 09:40 | NUR ---
WAS SEEN BY DR. Lukas TANNER, VERBALIZED PT CLEARED ON MD'S STANDPOINT. CONTINUE TO MONITOR.
--- NOTE | 2017-04-09 10:04 | NUR ---
NEW LAB ORDERS RECEIVED FROM DR. ALEGRIA. NOTED AND CARRIED OUT.
--- NOTE | 2017-04-09 10:27 | NUR ---
PATIENT HAS BEEN SCREENED AND CATEGORIZED HIGH NUTRITION RISK. PATIENT WILL BE SEEN WITHIN 1-2 DAYS OF ADMISSION. 04/08/17-04/09/[address]
[2017-04-09 12:00] VITALS: BP 121/58
--- NOTE | 2017-04-09 15:34 | NUR ---
04/09/17 RD INITIAL ASSESSMENT COMPLETED PLEASE REFER TO NUTRITION ASSESSMENT UNDER CARE ACTIVITY FOR ESTIMATED NUTRITIONAL NEEDS. CONTINUE CARDIAC DIET + BOOST BID 2. RD TO FOLLOW-UP 2-3 DAYS; HIGH RISK STEPAN CHOW RD
[2017-04-09 16:00] VITALS: BP 115/79
--- NOTE | 2017-04-09 18:19 | NUR ---
PT AWAKE ALERT AND RESPONSIVE, NO SIGNS OF ACUTE DISTRESS. WILL ENDORSE TO ONCOMING SCIENCE FACULTY MEMBER NURSE FOR CONTINUITY OF CARE.
--- NOTE | 2017-04-09 19:35 | NUR ---
RECEIVED REPORTS FROM DAY RN. PATIENT RESTING IN BED, FAMILY MEMBER AT BEDSIDE. NO S/S OF ACUTE DISTRESS NOTED, PATIENT DENIES PAIN AT THIS TIME. IV INTACT AND PATENT, FLUIDS INFUSING WELL. CALL LIGHT WITHIN REACH, SAFETY MEASURE ENSURED, WILL CONTINUE TO MONITOR
[2017-04-09 20:00] VITALS: BP 130/60
[2017-04-09] MEDS: ATORVASTATIN 20 MG TAB PO SCH (20:45)
[2017-04-09] MEDS: NACL 0.9% 1,000 ML IV SCH (22:18)
[2017-04-10] VITALS: BP 131/58
[2017-04-10] MEDS: NACL 0.9% 1,000 ML IV SCH (00:03)
--- NOTE | 2017-04-10 00:07 | NUR ---
PATIENT STATED PAIN AROUND STOMACH AREA, 6/10. MEDICATION GIVE ORDERED, SAFETY MEASURE ENSURED, CALL LIGHT WITHIN REACH, WILL CONTINUE TO MONITOR
--- NOTE | 2017-04-10 02:17 | NUR ---
PATIENT IS SLEEPING IN BED, RESPIRATION EVEN AND UNLABORED, NO S/S OF ACUTE DISTRESS NOTED, SAFETY MEASURE ENSURED, CALL LIGHT WITHIN REACH, WILL CONTINUE TO MONITOR
[2017-04-10 04:00] VITALS: BP 121/61
--- NOTE | 2017-04-10 04:30 | NUR ---
ASSISTED PATIENT TO BEDSIDE COMMODE, PATIENT IS RESTING IN BED AT THIS TIME, NO S/S OF ACUTE DISTRESS NOTED, CALL LIGHT WITHIN REACH, SAFETY MEASURE ENSURED, WILL CONTINUE TO MONITOR.
[2017-04-10] MEDS: HYDROcodone/APAP 7.5/325 MG 1 TAB PO PRN (05:45)
--- NOTE | 2017-04-10 05:50 | NUR ---
PATIENT STATED PAIN 6/10. MEDICATED ORDERED, WILL CONTINUE TO MONITOR
[2017-04-10 06:12] LABS: ANION GAP 10.1 (8-16); CALCIUM 8.1 mg/dL (8.5-10.1); CARBON DIOXIDE 28.4 mmol/L (21-32); CHLORIDE 102 mmol/L (98-107); CREATININE 0.4 mg/dL (0.6-1.3); GLUCOSE 95 mg/dL (74-106); POTASSIUM 3.5 mmol/L (3.5-5.1); SODIUM SERUM 137 mmol/L (136-145); UREA NITROGEN, BLOOD 11 mg/dL (7-18)
[2017-04-10 06:37] LABS: BASOPHILS # (AUTO) 0.1 K/uL (0.00-0.22); EOSINOPHILS # (AUTO) 0.1 K/uL (0-0.4); EOSINOPHILS % (AUTO) 1.6 % (0.0-4.0); HEMATOCRIT 33.9 % (36-48); HEMOGLOBIN 11.3 g/dL (12.0-16.0); LYMPHOCYTES # (AUTO) 1.3 K/uL (2.5-16.5); LYMPHOCYTES % (AUTO) 14.8 % (20.5-51.1); MEAN CORPUSCULAR HEMOGLOBIN 29 pg (27-31); MEAN CORPUSCULAR HGB CONC 33 g/dL (33-37); MEAN CORPUSCULAR VOLUME 88 fL (80-94); MONOCYTES # (AUTO) 0.9 K/uL (0.8-1.0); MONOCYTES % (AUTO) 9.9 % (1.7-9.3); NEUTROPHILS # (AUTO) 6.5 K/uL (1.8-7.7); NEUTROPHILS % (AUTO) 72.7 % (42.2-75.2); PLATELET COUNT (AUTO) 174 K/uL (140-450); RED BLOOD CELL COUNT(AUTO) 3.84 MIL/uL (4.20-5.40); RED CELL DISTRIBUTION WIDTH 16.1 % (11.6-13.7); WHITE BLOOD COUNT (AUTO) 8.9 K/uL (4.8-10.8)
--- NOTE | 2017-04-10 07:10 | NUR ---
RECEIVED PT REPORT AT BEDSIDE FROM NIGHT NURSE. PT IS AAOX4 AND SHOWS NO S/S OF DISTRESS ON ROOM AIR. PT HAS A NOTED IV ON THE R AC WITH IVF'S INFUSING WELL. PT SKIN IS INTACT. PT DENIES VAGINAL PAIN AND CHEST PAIN. PT BED IS LOWERED WITH CALL LIGHT WITHIN REACH. WILL CONTINUE TO MONITOR.
--- NOTE | 2017-04-10 07:20 | NUR ---
ENDORSED PLAN OF CARE TO DAY RN. PATIENT IS IN STABLE CONDITION.
[2017-04-10 08:00] VITALS: BP 117/57
[2017-04-10] MEDS: PANTOPRAZOLE 40 MG INJ VIAL IVP SCH (08:44)
[2017-04-10] MEDS: DOCUSATE SODIUM 100 MG GELCAP PO SCH (08:44)
[2017-04-10] MEDS: ASPIRIN 81 MG TAB.CHEW PO SCH (08:44)
--- NOTE | 2017-04-10 08:44 | NUR ---
ADMINISTERED SCHEDULED MEDICATIONS TO PT. PT STATES SHE FEEL WEAK BUT IS ABLE TO REPOSITION HERSELF AND SIT UP FOR BREAKFAST WITH ASSISTANCE. PT HAS FAMILY AT BEDSIDE AND DENIES PAIN AND SHOWS NO S/S OF DISTRESS ON ROOM AIR.
--- NOTE | 2017-04-10 10:00 | NUR ---
PT IS SLEEPING AND SHOWS NO S/S OF DISTRESS ON ROOM AIR.
[2017-04-10] MEDS ORDERED: DOCU-67 PO (10:25)
--- NOTE | 2017-04-10 11:30 | NUR ---
PT'S DAUGHTER SIGNED DISCHARGE INSTRUCTIONS AND PRESCRIPTIONS UNDER THE PERMISSION OF PT. ALL PAPERWORK WAS SIGNED. ALL BELONGINGS AND PRESCRIPTIONS IN PT POSSESSION. IV WAS DISCONTINUED WITH CANNULA INTACT. WRISTBANDS AND TELE MONITOR REMOVED. PT IS AWAITING RIDE TO GO HOME. PT IS IN STABLE CONDITION.
--- NOTE | 2017-04-10 12:11 | NUR ---
PT IS SLEEPING IN BED AND SHOWS NO S/S OF DISTRESS ON ROOM AIR.
[2017-04-10 12:24] VITALS: BP 120/60
--- NOTE | 2017-04-10 12:29 | NUR ---
PT IS TAKEN OF TELE MONITOR AND AWAIT RIDE FOR METAL PRECISION MACHINE ASSEMBLER. PT HAS FAMILY AT BEDSIDE. WILL CONTINUE TO MONITOR.
--- NOTE | 2017-04-10 13:26 | NUR ---
PT WAS OFFERED A WHEELCHAIR AND LEFT UNIT IN STABLE CONDITION. PT HAS FAMILY PRESENT AT SIDE. PT LEFT UNIT IN STABLE CONDITION.
== END 2017-04-10 13:26 | disposition home or self-care (01) | DRG 203 ==
LOC: MED 17:16 → MTU 04-08 01:30
PROVIDERS: ADMIT Family Medicine; ATTEND Family Medicine
DX: M94.0 Chondrocostal junction syndrome [Tietze] (principal); R64 Cachexia; I73.9 Peripheral vascular disease, unspecified; Z68.1 Body mass index [BMI] 19.9 or less, adult; E87.6 Hypokalemia; K86.9 Disease of pancreas, unspecified; F17.200 Nicotine dependence, unspecified, uncomplicated; K59.00 Constipation, unspecified; N95.2 Postmenopausal atrophic vaginitis; Z90.49 Acquired absence of other specified parts of digestive tract; Z79.899 Other long term (current) drug therapy
CPT/HCPCS: 36415; 71010; 76830; 80048; 80053; 81001; 82140; 82150; 83036; 83605; 83690; 83735; 83880; 84100; 84439; 84443; 84484; 85025; 85610; 85730; 87081; 87086; 93005; 99285; C9113; J7030; Q0092